=== PATIENT | male | born 1950 | race Asian ===

== ENCOUNTER 2018-09-12 15:14 | Inpatient (IN) | payer MEDICARE, MEDICAID ==
[~2018-09-12] VITALS: Ht 177.8 cm; Wt 59.4 kg
[2018-09-12] MEDS ORDERED: LEVOTHYROXINE75 MCG GT (15:20)
[2018-09-12] MEDS ORDERED: LOVENOX10 M1 SUBQ (15:20)
[2018-09-12] MEDS ORDERED: REGLAN10 M1 GT (15:20)
[2018-09-12] MEDS ORDERED: PANTOPRAZOLE SO40 MG GT (15:20)
[2018-09-12] MEDS ORDERED: ZINC SULFATE220 M2 GT (15:20)
[2018-09-12] MEDS ORDERED: METRONIDAZOLE500 MG GT (15:20)
[2018-09-12] MEDS ORDERED: GABAPENTIN400 MG GT (15:20)
[2018-09-12] MEDS ORDERED: ATORVASTATIN CA40 MG GT (15:20)
[2018-09-12] MEDS ORDERED: NORCO 5-325 TA1 EACH ORAL (15:20)
[2018-09-12] MEDS ORDERED: ASPIR 8181 MG GT (15:20)
[2018-09-12] MEDS ORDERED: [UNRECOGNIZED DRUG - OTHER] MC (15:20)
[2018-09-12] MEDS ORDERED: PERI-COLACE1 EA GT (15:20)
[2018-09-12] MEDS ORDERED: MILK OF MA2400 MG/10 ORAL (15:20)
--- NOTE | 2018-09-12 15:25 | Emergency Room Report ---
History of Present Illness General Chief Complaint: Malfunctioning Gastric Tube Source: Medical Record, EMS Present Illness HPI Patient is a 68-year-old male brought in by ambulance after G-tube was accidentally removed. Patient was noted to be chronically ventilator dependent.Patient was noted to have onset of symptoms earlier today.Patient had not been vomiting. Allergies: Coded Allergies: VANCOMYCIN (Verified Allergy, Unknown, 09/12/18) Patient History Past Medical History: see triage record Reviewed Nursing Documentation: PMH: Agreed; PSxH: Agreed Nursing Documentation-PMH Past Medical History: No History, Except For Hx Cardiac Problems: No - HYPOTHYROIDISM, HYPERLIPIDEMIA, DYSPHAGIA Hx Gastrointestinal Problems: Yes - GERD Review of Systems All Other Systems: limited - by nonverbal patient Physical Exam Vital Signs Date Time Temp Pulse Resp B/P (MAP) Pulse Ox O2 Delivery O2 Flow Rate FiO2 09/12/18 15:09 99.3 88 21 106/67 99 Mechanical Ventilator 5.0 General Appearance: Chronically Ill Head: normocephalic, atraumatic ENT: dry mucus membranes Neck: limited range of motion, tracheotomy Respiratory: no respiratory distress, speaking full sentences Cardiovascular #1: normal inspection, regular rate, rhythm Gastrointestinal: normal inspection, soft, other - gtube stoma patent Musculoskeletal: decreased range of mation Neurologic: alert, responsive, motor weakness, other - nonverbal Psychiatric: depressed affect Skin: no rash Medical Decision Making Diagnostic Impression: Primary Impression: PEG (percutaneous endoscopic gastrostomy) adjustment/replacement/removal Additional Impressions: Severe anemia Feeding by G-tube ER Course Patient presented for G-tube replacement. Gastrostomy tube was replaced with sterile technique. A 14 Cypriot gastric tube was placed into the stoma. This was subsequently removed and a 16 Cypriot gastric tube was placed at 3-1/2 cm was inflated with sterile water to 20 cc. Post procedure x-ray showed adequate G-tube placement. Patient tolerated well without complications.Patient was subsequently noted to be hypotensive. There is no blood from the G-tube. Patient was started on IV fluids. Laboratory testing showed evidence of anemia. Patient was daughter Sarah blood transfusion due to patient's significant anemia. Dr. Peck was contacted for inpatient management due to primary care physician Labs Test 09/12/18 17:30 09/12/18 17:40 09/12/18 18:00 White Blood Count 8.8 K/UL (4.8-10.8) Red Blood Count 2.16 M/UL (4.70-6.10) Hemoglobin 6.3 G/DL (14.2-18.0) Hematocrit 19.3 % (42.0-52.0) Mean Corpuscular Volume 89 FL (80-99) Mean Corpuscular Hemoglobin 29.1 PG (27.0-31.0) Mean Corpuscular Hemoglobin Concent 32.5 G/DL (32.0-36.0) Red Cell Distribution Width 13.5 % (11.6-14.8) Platelet Count 227 K/UL (150-450) Mean Platelet Volume 5.7 FL (6.5-10.1) Neutrophils (%) (Auto) % (45.0-75.0) Lymphocytes (%) (Auto) % (20.0-45.0) Monocytes (%) (Auto) % (1.0-10.0) Eosinophils (%) (Auto) % (0.0-3.0) Basophils (%) (Auto) % (0.0-2.0) Differential Total Cells Counted 100 Neutrophils % (Manual) 64 % (45-75) Lymphocytes % (Manual) 22 % (20-45) Monocytes % (Manual) 4 % (1-10) Eosinophils % (Manual) 0 % (0-3) Basophils % (Manual) 0 % (0-2) Band Neutrophils 10 % (0-8) Platelet Estimate Adequate Platelet Morphology Normal Hypochromasia 1+ Anisocytosis 1+ Sodium Level 132 MMOL/L (136-145) Potassium Level 4.0 MMOL/L (3.5-5.1) Chloride Level 97 MMOL/L (98-107) Carbon Dioxide Level 28 MMOL/L (21-32) Anion Gap 7 mmol/L (5-15) Blood Urea Nitrogen 19 mg/dL (7-18) Creatinine 1.0 MG/DL (0.55-1.30) Estimat Glomerular Filtration Rate > 60 mL/min (>60) Glucose Level 82 MG/DL (74-106) Lactic Acid Level 1.00 mmol/L (0.4-2.0) Calcium Level 8.8 MG/DL (8.5-10.1) Total Bilirubin 0.2 MG/DL (0.2-1.0) Aspartate Amino Transf (AST/SGOT) 32 U/L (15-37) Alanine Aminotransferase (ALT/SGPT) 17 U/L (12-78) Alkaline Phosphatase 85 U/L (46-116) Total Creatine Kinase 95 U/L (26-308) Creatine Kinase MB 1.8 NG/ML (0.0-3.6) Creatine Kinase MB Relative Index 1.8 Troponin I 0.000 ng/mL (0.000-0.056) Total Protein 7.1 G/DL (6.4-8.2) Albumin 2.0 G/DL (3.4-5.0) Globulin 5.1 g/dL Albumin/Globulin Ratio 0.4 (1.0-2.7) Lipase 51 U/L (73-393) Arterial Blood pH 7.454 (7.350-7.450) Arterial Blood Partial Pressure CO2 43.4 mmHg (35.0-45.0) Arterial Blood Partial Pressure O2 119.8 mmHg (75.0-100.0) Arterial Blood HCO3 29.8 mmol/L (22.0-26.0) Arterial Blood Oxygen Saturation 98.2 % (95-100) Arterial Blood Base Excess 5.3 (-2-2) Aakash Test Positive Urine Color Pale yellow Urine Appearance Clear Urine pH 7 (4.5-8.0) Urine Specific [place] 1.005 (1.005-1.035) Urine Protein 2+ (NEGATIVE) Urine Glucose (UA) Negative (NEGATIVE) Urine Ketones Negative (NEGATIVE) Urine Blood 2+ (NEGATIVE) Urine Nitrite Negative (NEGATIVE) Urine Bilirubin Negative (NEGATIVE) Urine Urobilinogen Normal MG/DL (0.0-1.0) Urine Leukocyte Esterase 1+ (NEGATIVE) Urine RBC 5-10 /HPF (0 - 0) Urine WBC 2-4 /HPF (0 - 0) Urine Squamous Epithelial Cells None /LPF (NONE/OCC) Urine Bacteria Few /HPF (NONE) Last Vital Signs Date Time Temp Pulse Resp B/P (MAP) Pulse Ox O2 Delivery O2 Flow Rate FiO2 09/12/18 15:09 99.3 88 21 106/67 99 Mechanical Ventilator 5.0 Status: unchanged Disposition: ADMITTED INPATIENT Condition: Serious Lonnie Galvez MD Sep 12, 2018 15:25
[2018-09-12 16:04] VITALS: BP 103/61
--- NOTE | 2018-09-12 16:19 | NUR ---
ED Nurse Note:pt. came for GT replacement, was replaced with FR 16, X-ray to conferm was done, pt. 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
--- NOTE | 2018-09-12 17:03 | Diagnostic Imaging Report ---
Indication: Post gastrostomy replacement Technique: Supine view of the abdomen after injection of water-soluble contrast into gastrostomy Comparison: none Findings: Contrast opacifies the stomach. No contrast extravasation is demonstrated. The bowel gas pattern is unremarkable. Incidental note is made of interstitial disease at both lung bases Impression: Satisfactory position of gastrostomy tube
--- NOTE | 2018-09-12 17:35 | NUR ---
ED Nurse Note: PT transport cancelled due to change in pt condition
[2018-09-12 17:50] VITALS: BP 92/62
--- NOTE | 2018-09-12 17:50 | NUR ---
ED Nurse Note:blood and cultures were sent to labs
--- NOTE | 2018-09-12 18:04 | NUR ---
ED Nurse Note:urine sent to labs
[2018-09-12 18:06] LABS: HEMATOCRIT 19.3 % (42.0-52.0); MEAN CORPUSCULAR VOLUME 89 FL (80-99); PLATELET COUNT 227 K/UL (150-450); RED BLOOD COUNT 2.16 M/UL (4.70-6.10); RED CELL DISTRIBUTION WIDTH 13.5 % (11.6-14.8); WHITE BLOOD COUNT 8.8 K/UL (4.8-10.8)
[2018-09-12 18:10] LABS: APPEARANCE,URINE CLEAR; BILIRUBIN, URINE NEGATIVE (NEGATIVE); COLOR,URINE PALE YELLOW; GLUCOSE, URINE (UA) NEGATIVE (NEGATIVE); KETONES,URINE NEGATIVE (NEGATIVE); LEUKOCYTE ESTERASE ,URINE 1+ (NEGATIVE); NITRITE,URINE NEGATIVE (NEGATIVE); PH,URINE 7 (4.5-8.0); PROTEIN,URINE 2+ (NEGATIVE); UROBILINOGEN,URINE NORMAL MG/DL (0.0-1.0)
[2018-09-12 18:24] LABS: HEMOGLOBIN 6.3 G/DL (14.2-18.0)
[2018-09-12 18:34] LABS: ANION GAP 7 mmol/L (5-15); BLOOD UREA NITROGEN 19 mg/dL (7-18); CALCIUM 8.8 MG/DL (8.5-10.1); CARBON DIOXIDE 28 MMOL/L (21-32); CHLORIDE 97 MMOL/L (98-107); SODIUM 132 MMOL/L (136-145)
[2018-09-12 18:55] LABS: ALANINE AMINOTRANSFERASE 17 U/L (12-78); ALBUMIN/GLOBULIN RATIO 0.4 (1.0-2.7); ALKALINE PHOSPHATASE 85 U/L (46-116); ASPARTATE AMINO TRANSFERASE 32 U/L (15-37); BILIRUBIN,TOTAL 0.2 MG/DL (0.2-1.0); CKMB 1.8 NG/ML (0.0-3.6); CREATINE KINASE 95 U/L (26-308)
--- NOTE | 2018-09-12 19:18 | NUR ---
ED Nurse Note:pt. has perianal and sacral redness photo was taken
--- NOTE | 2018-09-12 19:18 | NUR ---
ED Nurse Note:called SDU with report- they can't take report till 19:30
--- NOTE | 2018-09-12 20:00 | NUR ---
ED Nurse Note: Report given to JOSE DANIEL Gan. VSS. 1 bag of PRBC's hanging. Pt tolerating well. Showing no signs of acute distress.
[2018-09-12] MEDS ORDERED: OXYCODONE HCL10 MG GT (20:16)
[2018-09-12] MEDS ORDERED: ACETAMINOPHEN325 M1 GT (20:16)
[2018-09-12] MEDS ORDERED: VITAMIN D1000 UNI1 GT (20:16)
[2018-09-12] MEDS ORDERED: DOCUSATE SODIU100 MG GT (20:16)
[2018-09-12] MEDS ORDERED: OXYCODONE HCL10 MG ORAL (20:16)
[2018-09-12] MEDS ORDERED: METHOCARBAMOL500 MG GT (20:16)
[2018-09-12] MEDS ORDERED: DULCOLAX10 MG RC (20:16)
[2018-09-12] MEDS ORDERED: ACIDOPHILUS1 EAC4 GT (20:16)
[2018-09-12] MEDS ORDERED: ASCORBIC ACID500 MG GT (20:16)
[2018-09-12] MEDS ORDERED: LIDOCAINE700 M1 TP (20:16)
[2018-09-12] MEDS ORDERED: ROXICODONE5 MG GT (20:16)
[2018-09-12] MEDS ORDERED: FERROUS SU220 MG/53 GT (20:16)
[2018-09-12] MEDS ORDERED: FLEET ENEMA133 ML RECTAL (20:16)
[2018-09-12] MEDS ORDERED: MIRALAX17 G2 GT (20:16)
[2018-09-12] MEDS ORDERED: MULTIVITAMINS1 EA13 GT (20:16)
--- NOTE | 2018-09-12 20:30 | NUR ---
ED Nurse Note: Awaiting clean room in SDU.
[2018-09-12] MEDS ORDERED: Albuterol/Ipratropium 3ml neb HHN PRN (21:15)
[2018-09-12] MEDS ORDERED: Morphine Sulfate 4mg/ml Inj (IV USE ONLY) IVP PRN (21:15)
[2018-09-12] MEDS ORDERED: LORazepam Inj 2mg/ml 1ml IV PRN (21:15)
[2018-09-12] MEDS ORDERED: Miralax 17gm pkt ORAL PRN (21:15)
[2018-09-12 21:30] VITALS: BP 123/73
--- NOTE | 2018-09-12 21:30 | NUR ---
ED Nurse Note: Pt taken to SDU. RN, refractory technician and RT accompanied with patient. All belongings were taken with patient. Pt connected to ambu bag, IV located on RW20g with PRBC's running. Tolerating well. VSS with sbp of 113, HR 83, O2: 100%.
--- NOTE | 2018-09-12 21:30 | NUR ---
NURSE NOTES: Received report from Liliam Mason RN. Patient is awake in bed, non-verbal, A/O x3. Sinus rhythm on cardiac rehabilitation program director. No s/s of acute distress at this time. Saturating well on trach-vent settings: Shiley 6, AC 12, vT 500, FiO2 40%, PEEP 5. Condom catheter applied. Right wrist 20g IV, intact and patent running 1 unit pRBCs. Bed locked in lowest position with side rails up x3. Call light left within reach. Will continue to monitor.
[2018-09-13] VITALS: BP 114/67
[2018-09-13 04:00] VITALS: BP 120/69
--- NOTE | 2018-09-13 07:00 | NUR ---
Received Patient on Vent ACVC RR 12, VT 500, Fio2 40%, PEEP +5. Patient is trached with a cuffed Shiley 6 tracheostomy tube, secured with tracheostomy ties. Bilateral rhonchi heard upon auscultation. Suction thick white secretions via tracheostomy as needed. Patient alert and awake, lying comfortable in bed. Vent plugged into red outlet. Alarms on and audible. Will continue to monitor the patient throughout the day.
--- NOTE | 2018-09-13 07:20 | NUR ---
HAND-OFF: Report given to Elena Nova RN.
--- NOTE | 2018-09-13 07:21 | NUR ---
NURSE NOTES: Received patient from Elvia Ricketts RN. Patient in bed and awake. Trach to vent dependent. electronic device monitor in placed. tolerating Gtube feeding. condom cath in placed and draining. Bed in lowest position with side rails up. Will continue to follow plan of care.
[2018-09-13 08:00] VITALS: BP 136/83
[2018-09-13 08:16] LABS: HEMATOCRIT 28.9 % (42.0-52.0); HEMOGLOBIN 9.6 G/DL (14.2-18.0); MEAN CORPUSCULAR VOLUME 88 FL (80-99); PLATELET COUNT 218 K/UL (150-450); RED BLOOD COUNT 3.27 M/UL (4.70-6.10); RED CELL DISTRIBUTION WIDTH 13.5 % (11.6-14.8); WHITE BLOOD COUNT 6.1 K/UL (4.8-10.8)
[2018-09-13 08:36] LABS: INR 1.1 (0.9-1.1)
[2018-09-13 08:52] LABS: ALBUMIN 1.9 G/DL (3.4-5.0); ANION GAP 6 mmol/L (5-15); BLOOD UREA NITROGEN 15 mg/dL (7-18); CALCIUM 8.5 MG/DL (8.5-10.1); CARBON DIOXIDE 28 MMOL/L (21-32); CHLORIDE 100 MMOL/L (98-107); CREATININE 0.8 MG/DL (0.55-1.30); FERRITIN 1416 NG/ML (8-388); LACTATE DEHYDROGENASE 131 U/L (81-234); PHOSPHORUS 1.8 MG/DL (2.5-4.9); POTASSIUM 3.7 MMOL/L (3.5-5.1); SODIUM 133 MMOL/L (136-145)
[2018-09-13] MEDS: Pantoprazole Inj IV SCH (09:05)
[2018-09-13] MEDS: Heparin 5000 units/ml inj SUBQ SCH ×2 (09:07→21:07)
[2018-09-13 09:19] LABS: % IRON SATURATION 31 % (15-50); IRON 23 ug/dL (50-175); TOTAL IRON BINDING CAPACITY 75 ug/dL (250-450)
--- NOTE | 2018-09-13 09:38 | NUR ---
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
--- NOTE | 2018-09-13 10:03 | Diagnostic Imaging Report ---
Indication: Shortness of breath Technique: One view of the chest Comparison: none Findings: Prominent interstitial markings are seen in the right lung. No focal airspace consolidation. No effusions. Normal heart size. Tracheostomy is demonstrated. Impression: Acuity indeterminate prominent bilateral interstitial markings. Tracheostomy
--- NOTE | 2018-09-13 10:45 | History and Physical Report ---
DATE OF ADMISSION: 09/12/2018 REASON FOR ADMISSION: This is the first admission to [facility] of this 68-year-old patient because of malfunction of G-tube and drop in H and H. HISTORY OF PRESENT ILLNESS: The patient is a resident of an extended care facility subacute unit where he has been in relatively stable condition for the last week. More than a week ago, he was admitted to [facility] for sepsis. He was found to have a fracture of his left hip. It was nondisplaced and discharged back to the facility several days after his admission. His gastrostomy tube became nonfunctional, and he was transferred to [facility]. During assessment in the emergency room, he was found to have a hemoglobin of 6.3 and hematocrit of 19.3, and the patient was admitted. PAST MEDICAL HISTORY: He developed acute respiratory failure associated with CVA. He had to be intubated and placed on mechanical ventilation. He was unable to be weaned and underwent tracheostomy and gastrostomy and referred to the subacute unit. Medically, he is known to have hypothyroidism and chronic pain syndrome. ALLERGIES: There are no allergies. MEDICATIONS: The patient is on gabapentin 400 mg t.i.d. and levothyroxine 75 mcg daily. He was on heparin 5000 units subcutaneously q.12 h., pantoprazole 40 mg daily, albuterol sulfate and ipratropium bromide inhalation therapy every four hours, and lorazepam p.r.n. for anxiety. FAMILY HISTORY: Not known. SOCIAL HISTORY: He is single. He was born [place] for many years prior to . HABITS: The patient has a long history of smoking, but denies drinking or use of illicit drugs. REVIEW OF SYSTEMS: The patient is unable to give any information regarding his state of health. PHYSICAL EXAMINATION: VITAL SIGNS: His blood pressure is 113/67, his pulse is 81, respirations of 16, and temperature 98.6. HEENT: Eyes were normal. Pupils were round, equal, and reactive to light. Sclerae were white. Conjunctivae were pale. Extraocular movements were normal. Temporal arteries were palpable bilaterally. There was bilateral temporal wasting. Visual henao to confrontation 04:39 could not be assessed because of lack of the patient's comprehension. ENT, mucous membranes are not dehydrated. Auditory canals were clear and tympanic membranes could not be visualized. Nasal cavity was not congested. Nasal septum was intact. Soft palate was free of ulcerations. Pharynx was clear from exudate or tonsillar hypertrophy. Uvula kyleigh to phonation. Tongue was moist, midline, and normally papillated. NECK: Supple. There was no goiter. No mass. No lymphadenopathy. There was no JVD. No bruits. Carotid upstroke was 2+. LUNGS: Clear. HEART: PMI was in the fourth left intercostal space in midclavicular line. There was normal S1 and normal S2. There was no murmur. No arrhythmia. No S3. No S4. No pericardial rub. ABDOMEN: Soft, flat, and nontender without organomegaly. There was normal bowel sounds without bruits. There was no guarding. No rebound tenderness. No ascites. No hernia. No CVA tenderness. Liver span was 8 cm, smooth, and nontender. EXTREMITIES: There was no cyanosis, no clubbing, and no edema. Extremities were warm. NEUROLOGICAL: Reflexes in biceps, triceps, and brachioradialis were present. Patellar retinaculum was difficult to obtain. Plantars were indifferent. Cranial nerves II through XII were symmetric and equal. Cerebellar function, there was no tremor. No nystagmus. No extrapyramidal rigidity. Sensory exam to pinprick, cotton touch, and position are grossly normal. Motor strength could not be assessed because the patient declined the tests. LABORATORY DATA: Hemoglobin is 6.3, hematocrit 19.3 with MCV of 89, WBC of 8.8, and platelets 227. His BUN and creatinine are 19 and 1.0 respectively. His sodium is 132, potassium 4.0, chloride 97, and CO2 is 28. His troponin was not detected. His albumin is 2.0 and total protein 7.1. His lipase was 51. His lactic acid was . His KUB showed gastrostomy replacement and satisfactory position of gastrostomy tube. IMPRESSION: The patient has drop in H and H and he is admitted . We will type and cross and transfuse 2 units of packed RBC. Stool for occult blood x3 will be taken. total iron-binding capacity and ferritin will be ordered. Repeat laboratory tests will be done in the a.m. Shy Peck M.D. DR: CHIO/YK JOB#: [id number] CC:
--- NOTE | 2018-09-13 11:33 | Consultation ---
History of Present Illness General Chief Complaint: Malfunctioning Gastric Tube Present Illness HPI 68 year old male with hx of CVA, chronic tracheostomy and PEG feeding tube, hypothyroid, recent hip fracture, was brought in because his feeding tube came off. In ER he was found to be severely anemic. He also had right pleural effusion +/- infiltrate. Pt is awake and looks comfortable. Doesn't follow simple commands but keep starring and tracking. Allergies: Coded Allergies: VANCOMYCIN (Verified Allergy, Unknown, 09/12/18) Medication History Scheduled Ascorbic Acid* (Ascorbic Acid*), 500 MG GT DAILY, (Reported) Aspirin* (Aspir 81*), 81 MG GT DAILY, (Reported) Atorvastatin Calcium* (Atorvastatin Calcium*), 80 MG GT BEDTIME, (Reported) Bisacodyl (Dulcolax), 10 MG RC DAILY, (Reported) Cholecalciferol (Vitamin D3)* (Vitamin D*), 5,000 UNIT GT DAILY, (Reported) Docusate Sodium* (Docusate Sodium*), 100 MG GT Q12HR, (Reported) Enoxaparin* (Lovenox*), 60 MG SUBQ EVERY 12 HOURS, (Reported) Gabapentin* (Gabapentin*), 400 MG GT THREE TIMES A DAY, (Reported) Levothyroxine Sodium* (Levothyroxine Sodium*), 75 MCG GT DAILY, (Reported) Lidocaine (Lidocaine), 5 % TP Q12HR, (Reported) Magnesium Hydroxide* (Milk Of Magnesia*), 30 ML ORAL DAILY, (Reported) Metoclopramide Hcl* (Reglan*), 10 MG GT THREE TIMES A DAY, (Reported) Metronidazole* (Flagyl*), 500 MG GT EVERY 8 HOURS, (Reported) Multivitamin with Minerals (Multivitamins with Minerals), 1 TAB GT DAILY, ( Reported) Pantoprazole* (Pantoprazole*), 40 MG GT DAILY, (Reported) Polyethylene Glycol 3350* (Miralax*), 17 GM GT DAILY, (Reported) Zinc Sulfate (Zinc Sulfate), 220 MG GT DAILY, (Reported) Scheduled PRN Acetaminophen* (Acetaminophen 325MG Tablet*), 650 MG GT Q4H PRN for Mild Pain/ Temp > 100.5, (Reported) Hydrocodone Bit/Acetaminophen 5-325* ([place] 5-325*), 1 TAB ORAL Q4H PRN for For Pain, (Reported) Methocarbamol* (Methocarbamol*), 500 MG GT Q8HR PRN for For Pain, (Reported) Na Phos,M-B/Na Phos,Di-Ba* (Fleet Enema*), 118 ML RECTAL for BOWEL MANAGEMENT, ( Reported) Oxycodone HCl (Oxycodone HCl), 5 MG GT Q6HR PRN for Moderate Pain (Pain Scale 4- 6), (Reported) Oxycodone Hcl* (Oxycodone Hcl*), 10 MG ORAL Q6HR PRN for Severe Pain (Pain Scale 7-10), (Reported) Oxycodone Hcl* (Oxycodone Hcl*), 10 MG GT Q6HR PRN for Severe Pain (Pain Scale 7 -10), (Reported) Miscellaneous Medications Ferrous Sulfate (Ferrous Sulfate), 330 MG GT, (Reported) Lactobacillus Acidophilus (Acidophilus), 4 EACH GT, (Reported) Discontinued Medications Carboxymethylcellulose (Methocel E 4 M), 500 MG MC, (Reported) Discontinued Reason: Therapy completed Docusate Sod/Senna (Docusate Sodium-Senna Tablet), 1 CAP GT TWICE A DAY, ( Reported) Discontinued Reason: Therapy completed Patient History Healthcare decision maker N Resuscitation status Do Not Resuscitate Advanced Directive on File Past Medical/Surgical History Past Medical/Surgical History: (1) Hypothyroidism (2) Hip fracture (3) Feeding by G-tube (4) Chronic respiratory failure (5) History of CVA (cerebrovascular accident) Review of Systems All Other Systems: negative except mentioned in HPI Physical Exam General Appearance: cachetic Lines, tubes and drains: peripheral HEENT: normocephalic, atraumatic Neck: non-tender, normal alignment Respiratory/Chest: chest wall non-tender, normal breath sounds Cardiovascular/Chest: normal peripheral pulses, normal rate Abdomen: normal bowel sounds Genitourinary/Rectal: normal genital exam Extremities: non-tender Last 24 Hour Vital Signs Date Time Temp Pulse Resp B/P (MAP) Pulse Ox O2 Delivery O2 Flow Rate FiO2 09/13/18 10:47 86 27 40 09/13/18 08:47 84 24 40 09/13/18 08:00 Mechanical Ventilator 09/13/18 08:00 40 09/13/18 08:00 99.2 79 22 136/83 (100) 100 09/13/18 07:39 82 09/13/18 07:29 84 20 40 09/13/18 05:30 85 28 40 09/13/18 04:00 40 09/13/18 04:00 98.6 84 24 120/69 (86) 100 09/13/18 04:00 Mechanical Ventilator 09/13/18 03:32 81 09/13/18 00:54 73 19 40 09/13/18 00:00 Mechanical Ventilator 09/13/18 00:00 98.2 75 13 114/67 (83) 100 09/13/18 00:00 40 09/12/18 23:24 76 09/12/18 23:03 76 15 40 09/12/18 22:50 79 29 35 09/12/18 21:50 98.6 81 16 113/67 100 Mechanical Ventilator 09/12/18 21:30 40 09/12/18 21:30 Mechanical Ventilator 09/12/18 21:30 98.2 79 19 123/73 (90) 98 09/12/18 21:09 80 17 40 09/12/18 19:50 82 19 40 09/12/18 19:44 82 19 Mechanical Ventilator 40 09/12/18 17:50 99.9 83 21 92/62 99 Mechanical Ventilator 5.0 09/12/18 17:30 85 18 40 09/12/18 16:04 99.3 86 21 103/61 99 Mechanical Ventilator 5.0 09/12/18 15:15 99 21 40 09/12/18 15:09 99.3 88 21 106/67 99 Mechanical Ventilator 5.0 Intake and Output 09/12/18 09/13/18 19:00 07:00 Intake Total 60 ml 370 ml Output Total 150 ml Balance 60 ml 220 ml Intake Free Water 60 ml 100 ml Tube Feeding 270 ml Output Urine Total 150 ml # Bowel Movements 4 Laboratory Tests Test 09/12/18 17:30 09/12/18 17:40 09/12/18 18:00 09/13/18 03:00 White Blood Count 8.8 K/UL (4.8-10.8) Red Blood Count 2.16 M/UL (4.70-6.10) L Hemoglobin 6.3 G/DL (14.2-18.0) *L Hematocrit 19.3 % (42.0-52.0) L Mean Corpuscular Volume 89 FL (80-99) Mean Corpuscular Hemoglobin 29.1 PG (27.0-31.0) Mean Corpuscular Hemoglobin Concent 32.5 G/DL (32.0-36.0) Red Cell Distribution Width 13.5 % (11.6-14.8) Platelet Count 227 K/UL (150-450) Mean Platelet Volume 5.7 FL (6.5-10.1) L Neutrophils (%) (Auto) % (45.0-75.0) Lymphocytes (%) (Auto) % (20.0-45.0) Monocytes (%) (Auto) % (1.0-10.0) Eosinophils (%) (Auto) % (0.0-3.0) Basophils (%) (Auto) % (0.0-2.0) Differential Total Cells Counted 100 Neutrophils % (Manual) 64 % (45-75) Lymphocytes % (Manual) 22 % (20-45) Monocytes % (Manual) 4 % (1-10) Eosinophils % (Manual) 0 % (0-3) Basophils % (Manual) 0 % (0-2) Band Neutrophils 10 % (0-8) H Platelet Estimate Adequate Platelet Morphology Normal Hypochromasia 1+ Anisocytosis 1+ Sodium Level 132 MMOL/L (136-145) L Potassium Level 4.0 MMOL/L (3.5-5.1) Chloride Level 97 MMOL/L (98-107) L Carbon Dioxide Level 28 MMOL/L (21-32) Anion Gap 7 mmol/L (5-15) Blood Urea Nitrogen 19 mg/dL (7-18) H Creatinine 1.0 MG/DL (0.55-1.30) Estimat Glomerular Filtration Rate > 60 mL/min (>60) Glucose Level 82 MG/DL (74-106) Lactic Acid Level 1.00 mmol/L (0.4-2.0) Calcium Level 8.8 MG/DL (8.5-10.1) Total Bilirubin 0.2 MG/DL (0.2-1.0) Aspartate Amino Transf (AST/SGOT) 32 U/L (15-37) Alanine Aminotransferase (ALT/SGPT) 17 U/L (12-78) Alkaline Phosphatase 85 U/L (46-116) Total Creatine Kinase 95 U/L (26-308) Creatine Kinase MB 1.8 NG/ML (0.0-3.6) Creatine Kinase MB Relative Index 1.8 Troponin I 0.000 ng/mL (0.000-0.056) Total Protein 7.1 G/DL (6.4-8.2) Albumin 2.0 G/DL (3.4-5.0) L Globulin 5.1 g/dL Albumin/Globulin Ratio 0.4 (1.0-2.7) L Lipase 51 U/L (73-393) L Arterial Blood pH 7.454 (7.350-7.450) Arterial Blood Partial Pressure CO2 43.4 mmHg (35.0-45.0) Arterial Blood Partial Pressure O2 119.8 mmHg (75.0-100.0) H Arterial Blood HCO3 29.8 mmol/L (22.0-26.0) H Arterial Blood Oxygen Saturation 98.2 % (95-100) Arterial Blood Base Excess 5.3 (-2-2) H Aakash Test Positive Urine Color Pale yellow Urine Appearance Clear Urine pH 7 (4.5-8.0) Urine Specific [place] 1.005 (1.005-1.035) Urine Protein 2+ (NEGATIVE) H Urine Glucose (UA) Negative (NEGATIVE) Urine Ketones Negative (NEGATIVE) Urine Blood 2+ (NEGATIVE) H Urine Nitrite Negative (NEGATIVE) Urine Bilirubin Negative (NEGATIVE) Urine Urobilinogen Normal MG/DL (0.0-1.0) Urine Leukocyte Esterase 1+ (NEGATIVE) H Urine RBC 5-10 /HPF (0 - 0) H Urine WBC 2-4 /HPF (0 - 0) Urine Squamous Epithelial Cells None /LPF (NONE/OCC) Urine Bacteria Few /HPF (NONE) Stool Occult Blood Negative (NEGATIVE) Test 09/13/18 07:55 White Blood Count 6.1 K/UL (4.8-10.8) Red Blood Count 3.27 M/UL (4.70-6.10) L Hemoglobin 9.6 G/DL (14.2-18.0) #L Hematocrit 28.9 % (42.0-52.0) #L Mean Corpuscular Volume 88 FL (80-99) Mean Corpuscular Hemoglobin 29.5 PG (27.0-31.0) Mean Corpuscular Hemoglobin Concent 33.4 G/DL (32.0-36.0) Red Cell Distribution Width 13.5 % (11.6-14.8) Platelet Count 218 K/UL (150-450) Mean Platelet Volume 5.3 FL (6.5-10.1) L Neutrophils (%) (Auto) % (45.0-75.0) Lymphocytes (%) (Auto) % (20.0-45.0) Monocytes (%) (Auto) % (1.0-10.0) Eosinophils (%) (Auto) % (0.0-3.0) Basophils (%) (Auto) % (0.0-2.0) Differential Total Cells Counted 100 Neutrophils % (Manual) 82 % (45-75) H Lymphocytes % (Manual) 10 % (20-45) L Monocytes % (Manual) 7 % (1-10) Eosinophils % (Manual) 1 % (0-3) Basophils % (Manual) 0 % (0-2) Band Neutrophils 0 % (0-8) Platelet Estimate Adequate Platelet Morphology Normal Red Blood Cell Morphology Normal Erythrocyte Sedimentation Rate 120 MM/HR (0-20) H Reticulocyte Count 0.6 % (0.0-2.0) Prothrombin Time 11.4 SEC (9.30-11.50) Prothromb Time International Ratio 1.1 (0.9-1.1) Activated Partial Thromboplast Time 37 SEC (23-33) H Sodium Level 133 MMOL/L (136-145) L Potassium Level 3.7 MMOL/L (3.5-5.1) Chloride Level 100 MMOL/L (98-107) Carbon Dioxide Level 28 MMOL/L (21-32) Anion Gap 6 mmol/L (5-15) Blood Urea Nitrogen 15 mg/dL (7-18) Creatinine 0.8 MG/DL (0.55-1.30) Estimat Glomerular Filtration Rate > 60 mL/min (>60) Glucose Level 104 MG/DL (74-106) Calcium Level 8.5 MG/DL (8.5-10.1) Phosphorus Level 1.8 MG/DL (2.5-4.9) L Iron Level 23 ug/dL (50-175) L Total Iron Binding Capacity 75 ug/dL (250-450) L Percent Iron Saturation 31 % (15-50) Unsaturated Iron Binding 52 ug/dL (112-346) L Ferritin 1416 NG/ML (8-388) H Lactate Dehydrogenase 131 U/L (81-234) Albumin 1.9 G/DL (3.4-5.0) L Carcinoembryonic Antigen Pending Vitamin B12 Level 1217 PG/ML (193-986) H Folate 13.6 NG/ML (8.6-58.9) Height (Feet): 5 Height (Inches): 10.00 Weight (Pounds): 131 Medications Current Medications Medications (Trade) Dose Ordered Sig/Radha Route PRN Reason Start Time Stop Time Status Last Admin Dose Admin Acetaminophen (Tylenol) 650 mg Q4H PRN ORAL FEVER 09/12/18 21:15 10/12/18 21:14 Albuterol/ Ipratropium (Albuterol/ Ipratropium) 3 ml Q4H PRN HHN Shortness of Breath 09/12/18 21:15 09/17/18 21:14 Dextrose (Dextrose 50%) 25 ml Q30M PRN IV Hypoglycemia 09/12/18 21:15 10/12/18 21:14 Dextrose (Dextrose 50%) 50 ml Q30M PRN IV Hypoglycemia 09/12/18 21:30 10/12/18 21:29 Gabapentin (Neurontin) 400 mg THREE TIMES A DAY GT 09/13/18 09:00 10/13/18 08:59 09/13/18 09:05 Heparin Sodium (Porcine) (Heparin 5000 units/ml) 5,000 units EVERY 12 HOURS SUBQ 09/13/18 09:00 10/13/18 08:59 09/13/18 09:07 Levothyroxine Sodium (Synthroid) 75 mcg DAILY GT 09/13/18 09:00 10/13/18 08:59 09/13/18 09:05 Lorazepam (Ativan 2mg/ml 1ml) 2 mg Q2H PRN IV For Anxiety 09/12/18 21:15 09/19/18 21:14 Morphine Sulfate (Morphine Sulfate) 4 mg Q4H PRN IVP Severe Pain (Pain Scale 7-10) 09/12/18 21:15 09/19/18 21:14 Ondansetron HCl (Zofran) 4 mg Q6H PRN IVP Nausea & Vomiting 09/12/18 21:15 10/12/18 21:14 Pantoprazole (Protonix) 40 mg DAILY IV 09/13/18 09:00 10/13/18 08:59 09/13/18 09:05 Polyethylene Glycol (Miralax) 17 gm DAILYPRN PRN ORAL Constipation 09/12/18 21:15 10/12/18 21:14 Assessment/Plan Problem List: (1) Hypotension ICD Codes: I95.9 - Hypotension, unspecified SNOMED: 42137021 (2) Chronic respiratory failure ICD Codes: J96.10 - Chronic respiratory failure, unspecified whether with hypoxia or hypercapnia SNOMED: 55680992 (3) Severe anemia ICD Codes: D64.9 - Anemia, unspecified SNOMED: 756087961 (4) History of CVA (cerebrovascular accident) ICD Codes: Z86.73 - Personal history of transient ischemic attack (TIA), and cerebral infarction without residual deficits SNOMED: 196205641 (5) Hypothyroidism ICD Codes: E03.9 - Hypothyroidism, unspecified SNOMED: 36756132 (6) Hip fracture ICD Codes: S72.009A - Fracture of unspecified part of neck of unspecified femur , initial encounter for closed fracture SNOMED: 687558067 (7) Feeding by G-tube ICD Codes: Z93.1 - Gastrostomy status SNOMED: 567462960, 409815228, 457588290 (8) Protein-calorie malnutrition, severe ICD Codes: E43 - Unspecified severe protein-calorie malnutrition SNOMED: 435569574, 279103190, 800635803 Respiratory: monitor respiratory rate, adjust FIO2, CXR Cardiac: continue to monitor HR/BP Renal: F/U I&O, keep IV fluid, check electrolytes Infectious Disease: check cultures Gastrointestinal: continue feedings/current rate Endocrine: monitor blood sugar Hematologic: monitor H/H, transfuse if hgb<8.5 Neurologic: keep patient comfortable Affect: PRN ativan Prophylaxis: Heparin Disposition: keep in ICU Notes Reviewed: international relations teacher, cardio Discussed with: nurses, consultants, rn case manager hospice Gabriela Leonard MD Sep 13, 2018 11:32
--- NOTE | 2018-09-13 11:51 | NUR ---
RD ASSESSMENT & RECOMMENDATIONS SEE CARE ACTIVITY FOR COMPLETE ASSESSMENT DAILY ESTIMATED NEEDS: Needs based on Underweight, critical care 56kg 27-32 kcals/kg 7107-4113 total kcals 1.2-2 g protein/kg 67-112 g total protein 25-30 mL/kg 2732-9191 total fluid mLs NUTRITION DIAGNOSIS: 1) Increased kcal and protein needs r/t underweight status as evidenced by pt is 74% of [place] Body Weight w/ generalized moderate to severe wasting. 2) Swallowing difficulty r/t respiratory status as evidenced by pt is vent dep via trach, w/ PEG. CURRENT TF:Jevity 1.2 @30 x22 hrs ENTERAL NUTRITION RECOMMENDATIONS: Osmolite 1.5 @50ml/hr x22 hrs + Prosource qdaily to provide 1100ml, 1650 kcal, 69g + 11g protein, 838ml free H2O - rec TF CHANGE to better meet est kcal and protein needs. - Start Osmolite 1.5 @20ml/hr for 6 hrs, advance 10ml/hr q4-6 hrs to goal - Flush per , HOB over 30 degrees Add PROSOURCE qdaily to better meet est pro needs ADDITIONAL RECOMMENDATIONS: 1) RE-calibrate bed scale for accurate CBW 2) F/up w/ WC eval 3) Check lytes daily, replete as needed
[2018-09-13 12:00] VITALS: BP 139/84
[2018-09-13] MEDS ORDERED: Sodium Phosphate 30 MM in NS 275 ML IV ONE (13:00)
--- NOTE | 2018-09-13 14:12 | Diagnostic Imaging Report ---
APPROVED REPORT CPT Code: 09547 Present Symptoms Lower Extremity Pain: BILATERAL: Imaging reveals a patent deep venous system bilaterally. There is no evidence of thrombus within the femoral, popliteal or tibial segments. The greater saphenous veins are also within normal limits. Doppler indicates normal spontaneous flow within these segments.
--- NOTE | 2018-09-13 15:21 | Consultation ---
History of Present Illness General Date patient seen: Sep 13, 2018 Chief Complaint: Malfunctioning Gastric Tube Present Illness HPI 68 y/o M with hx of CVA, dysphagia s/p PEG, HLD, GERD, chronic resp failure s/o trach, hypothyroidism, recent hip fracture, SNF resident presented to ED on 09/12 after PEG came off. In ED was found to be severely anemic (hgb 6.3). Also found to ahve R pleural effusion +/- infilttrate. Allergies: Coded Allergies: VANCOMYCIN (Verified Allergy, Unknown, 09/12/18) Medication History Scheduled Ascorbic Acid* (Ascorbic Acid*), 500 MG GT DAILY, (Reported) Aspirin* (Aspir 81*), 81 MG GT DAILY, (Reported) Atorvastatin Calcium* (Atorvastatin Calcium*), 80 MG GT BEDTIME, (Reported) Bisacodyl (Dulcolax), 10 MG RC DAILY, (Reported) Cholecalciferol (Vitamin D3)* (Vitamin D*), 5,000 UNIT GT DAILY, (Reported) Docusate Sodium* (Docusate Sodium*), 100 MG GT Q12HR, (Reported) Enoxaparin* (Lovenox*), 60 MG SUBQ EVERY 12 HOURS, (Reported) Gabapentin* (Gabapentin*), 400 MG GT THREE TIMES A DAY, (Reported) Levothyroxine Sodium* (Levothyroxine Sodium*), 75 MCG GT DAILY, (Reported) Lidocaine (Lidocaine), 5 % TP Q12HR, (Reported) Magnesium Hydroxide* (Milk Of Magnesia*), 30 ML ORAL DAILY, (Reported) Metoclopramide Hcl* (Reglan*), 10 MG GT THREE TIMES A DAY, (Reported) Metronidazole* (Flagyl*), 500 MG GT EVERY 8 HOURS, (Reported) Multivitamin with Minerals (Multivitamins with Minerals), 1 TAB GT DAILY, ( Reported) Pantoprazole* (Pantoprazole*), 40 MG GT DAILY, (Reported) Polyethylene Glycol 3350* (Miralax*), 17 GM GT DAILY, (Reported) Zinc Sulfate (Zinc Sulfate), 220 MG GT DAILY, (Reported) Scheduled PRN Acetaminophen* (Acetaminophen 325MG Tablet*), 650 MG GT Q4H PRN for Mild Pain/ Temp > 100.5, (Reported) Hydrocodone Bit/Acetaminophen 5-325* ([place] 5-325*), 1 TAB ORAL Q4H PRN for For Pain, (Reported) Methocarbamol* (Methocarbamol*), 500 MG GT Q8HR PRN for For Pain, (Reported) Na Phos,M-B/Na Phos,Di-Ba* (Fleet Enema*), 118 ML RECTAL for BOWEL MANAGEMENT, ( Reported) Oxycodone HCl (Oxycodone HCl), 5 MG GT Q6HR PRN for Moderate Pain (Pain Scale 4- 6), (Reported) Oxycodone Hcl* (Oxycodone Hcl*), 10 MG ORAL Q6HR PRN for Severe Pain (Pain Scale 7-10), (Reported) Oxycodone Hcl* (Oxycodone Hcl*), 10 MG GT Q6HR PRN for Severe Pain (Pain Scale 7 -10), (Reported) Miscellaneous Medications Ferrous Sulfate (Ferrous Sulfate), 330 MG GT, (Reported) Lactobacillus Acidophilus (Acidophilus), 4 EACH GT, (Reported) Discontinued Medications Carboxymethylcellulose (Methocel E 4 M), 500 MG MC, (Reported) Discontinued Reason: Therapy completed Docusate Sod/Senna (Docusate Sodium-Senna Tablet), 1 CAP GT TWICE A DAY, ( Reported) Discontinued Reason: Therapy completed Patient History Healthcare decision maker N Resuscitation status Do Not Resuscitate Advanced Directive on File Patient History Narrative Pmhx: as above Shx: The patient has a long history of smoking, but denies drinking or use of illicit drugs. Fhx: non contributory Review of Systems All Other Systems: negative except mentioned in HPI Physical Exam Physical Exam Narrative HEENT: Pupils were round, equal, and reactive to light. Sclerae were white. Conjunctivae were pale. ENT, mucous membranes are not dehydrated. . Pharynx was clear from exudate or tonsillar hypertrophy. NECK: Supple. There was no goiter. No mass. No lymphadenopathy. There was no JVD. No bruits. Carotid upstroke was 2+. LUNGS: Clear. HEART: PMI was in the fourth left intercostal space in midclavicular line. There was normal S1 and normal S2. There was no murmur. No arrhythmia. No S3. No S4. No pericardial rub. ABDOMEN: Soft, flat, and nontender without organomegaly. There was normal bowel sounds without bruits. There was no guarding. No rebound tenderness. No ascites. No hernia. No CVA tenderness. Liver span was 8 cm, smooth, and nontender. EXTREMITIES: There was no cyanosis, no clubbing, and no edema. Extremities were warm. Last 24 Hour Vital Signs Date Time Temp Pulse Resp B/P (MAP) Pulse Ox O2 Delivery O2 Flow Rate FiO2 09/13/18 13:24 83 25 40 09/13/18 12:00 40 09/13/18 12:00 Mechanical Ventilator 09/13/18 12:00 98.5 84 24 139/84 (102) 99 09/13/18 11:48 82 09/13/18 10:47 86 27 40 09/13/18 08:47 84 24 40 09/13/18 08:00 Mechanical Ventilator 09/13/18 08:00 40 09/13/18 08:00 99.2 79 22 136/83 (100) 100 09/13/18 07:39 82 09/13/18 07:29 84 20 40 09/13/18 05:30 85 28 40 09/13/18 04:00 40 09/13/18 04:00 98.6 84 24 120/69 (86) 100 09/13/18 04:00 Mechanical Ventilator 09/13/18 03:32 81 09/13/18 00:54 73 19 40 09/13/18 00:00 Mechanical Ventilator 09/13/18 00:00 98.2 75 13 114/67 (83) 100 09/13/18 00:00 40 09/12/18 23:24 76 09/12/18 23:03 76 15 40 09/12/18 22:50 79 29 35 09/12/18 21:50 98.6 81 16 113/67 100 Mechanical Ventilator 09/12/18 21:30 40 09/12/18 21:30 Mechanical Ventilator 09/12/18 21:30 98.2 79 19 123/73 (90) 98 09/12/18 21:09 80 17 40 09/12/18 19:50 82 19 40 09/12/18 19:44 82 19 Mechanical Ventilator 40 09/12/18 17:50 99.9 83 21 92/62 99 Mechanical Ventilator 5.0 09/12/18 17:30 85 18 40 09/12/18 16:04 99.3 86 21 103/61 99 Mechanical Ventilator 5.0 09/12/18 15:15 99 21 40 09/12/18 15:09 99.3 88 21 106/67 99 Mechanical Ventilator 5.0 Intake and Output 09/12/18 09/13/18 19:00 07:00 Intake Total 60 ml 370 ml Output Total 150 ml Balance 60 ml 220 ml Intake Free Water 60 ml 100 ml Tube Feeding 270 ml Output Urine Total 150 ml # Bowel Movements 4 Laboratory Tests Test 09/12/18 17:30 09/12/18 17:40 09/12/18 18:00 09/13/18 03:00 White Blood Count 8.8 K/UL (4.8-10.8) Red Blood Count 2.16 M/UL (4.70-6.10) L Hemoglobin 6.3 G/DL (14.2-18.0) *L Hematocrit 19.3 % (42.0-52.0) L Mean Corpuscular Volume 89 FL (80-99) Mean Corpuscular Hemoglobin 29.1 PG (27.0-31.0) Mean Corpuscular Hemoglobin Concent 32.5 G/DL (32.0-36.0) Red Cell Distribution Width 13.5 % (11.6-14.8) Platelet Count 227 K/UL (150-450) Mean Platelet Volume 5.7 FL (6.5-10.1) L Neutrophils (%) (Auto) % (45.0-75.0) Lymphocytes (%) (Auto) % (20.0-45.0) Monocytes (%) (Auto) % (1.0-10.0) Eosinophils (%) (Auto) % (0.0-3.0) Basophils (%) (Auto) % (0.0-2.0) Differential Total Cells Counted 100 Neutrophils % (Manual) 64 % (45-75) Lymphocytes % (Manual) 22 % (20-45) Monocytes % (Manual) 4 % (1-10) Eosinophils % (Manual) 0 % (0-3) Basophils % (Manual) 0 % (0-2) Band Neutrophils 10 % (0-8) H Platelet Estimate Adequate Platelet Morphology Normal Hypochromasia 1+ Anisocytosis 1+ Sodium Level 132 MMOL/L (136-145) L Potassium Level 4.0 MMOL/L (3.5-5.1) Chloride Level 97 MMOL/L (98-107) L Carbon Dioxide Level 28 MMOL/L (21-32) Anion Gap 7 mmol/L (5-15) Blood Urea Nitrogen 19 mg/dL (7-18) H Creatinine 1.0 MG/DL (0.55-1.30) Estimat Glomerular Filtration Rate > 60 mL/min (>60) Glucose Level 82 MG/DL (74-106) Lactic Acid Level 1.00 mmol/L (0.4-2.0) Calcium Level 8.8 MG/DL (8.5-10.1) Total Bilirubin 0.2 MG/DL (0.2-1.0) Aspartate Amino Transf (AST/SGOT) 32 U/L (15-37) Alanine Aminotransferase (ALT/SGPT) 17 U/L (12-78) Alkaline Phosphatase 85 U/L (46-116) Total Creatine Kinase 95 U/L (26-308) Creatine Kinase MB 1.8 NG/ML (0.0-3.6) Creatine Kinase MB Relative Index 1.8 Troponin I 0.000 ng/mL (0.000-0.056) Total Protein 7.1 G/DL (6.4-8.2) Albumin 2.0 G/DL (3.4-5.0) L Globulin 5.1 g/dL Albumin/Globulin Ratio 0.4 (1.0-2.7) L Lipase 51 U/L (73-393) L Arterial Blood pH 7.454 (7.350-7.450) Arterial Blood Partial Pressure CO2 43.4 mmHg (35.0-45.0) Arterial Blood Partial Pressure O2 119.8 mmHg (75.0-100.0) H Arterial Blood HCO3 29.8 mmol/L (22.0-26.0) H Arterial Blood Oxygen Saturation 98.2 % (95-100) Arterial Blood Base Excess 5.3 (-2-2) H Aakash Test Positive Urine Color Pale yellow Urine Appearance Clear Urine pH 7 (4.5-8.0) Urine Specific [place] 1.005 (1.005-1.035) Urine Protein 2+ (NEGATIVE) H Urine Glucose (UA) Negative (NEGATIVE) Urine Ketones Negative (NEGATIVE) Urine Blood 2+ (NEGATIVE) H Urine Nitrite Negative (NEGATIVE) Urine Bilirubin Negative (NEGATIVE) Urine Urobilinogen Normal MG/DL (0.0-1.0) Urine Leukocyte Esterase 1+ (NEGATIVE) H Urine RBC 5-10 /HPF (0 - 0) H Urine WBC 2-4 /HPF (0 - 0) Urine Squamous Epithelial Cells None /LPF (NONE/OCC) Urine Bacteria Few /HPF (NONE) Stool Occult Blood Negative (NEGATIVE) Test 09/13/18 07:55 White Blood Count 6.1 K/UL (4.8-10.8) Red Blood Count 3.27 M/UL (4.70-6.10) L Hemoglobin 9.6 G/DL (14.2-18.0) #L Hematocrit 28.9 % (42.0-52.0) #L Mean Corpuscular Volume 88 FL (80-99) Mean Corpuscular Hemoglobin 29.5 PG (27.0-31.0) Mean Corpuscular Hemoglobin Concent 33.4 G/DL (32.0-36.0) Red Cell Distribution Width 13.5 % (11.6-14.8) Platelet Count 218 K/UL (150-450) Mean Platelet Volume 5.3 FL (6.5-10.1) L Neutrophils (%) (Auto) % (45.0-75.0) Lymphocytes (%) (Auto) % (20.0-45.0) Monocytes (%) (Auto) % (1.0-10.0) Eosinophils (%) (Auto) % (0.0-3.0) Basophils (%) (Auto) % (0.0-2.0) Differential Total Cells Counted 100 Neutrophils % (Manual) 82 % (45-75) H Lymphocytes % (Manual) 10 % (20-45) L Monocytes % (Manual) 7 % (1-10) Eosinophils % (Manual) 1 % (0-3) Basophils % (Manual) 0 % (0-2) Band Neutrophils 0 % (0-8) Other Cell Type Pathologist comment Platelet Estimate Adequate Platelet Morphology Normal Red Blood Cell Morphology Normal Erythrocyte Sedimentation Rate 120 MM/HR (0-20) H Reticulocyte Count 0.6 % (0.0-2.0) Prothrombin Time 11.4 SEC (9.30-11.50) Prothromb Time International Ratio 1.1 (0.9-1.1) Activated Partial Thromboplast Time 37 SEC (23-33) H Sodium Level 133 MMOL/L (136-145) L Potassium Level 3.7 MMOL/L (3.5-5.1) Chloride Level 100 MMOL/L (98-107) Carbon Dioxide Level 28 MMOL/L (21-32) Anion Gap 6 mmol/L (5-15) Blood Urea Nitrogen 15 mg/dL (7-18) Creatinine 0.8 MG/DL (0.55-1.30) Estimat Glomerular Filtration Rate > 60 mL/min (>60) Glucose Level 104 MG/DL (74-106) Calcium Level 8.5 MG/DL (8.5-10.1) Phosphorus Level 1.8 MG/DL (2.5-4.9) L Iron Level 23 ug/dL (50-175) L Total Iron Binding Capacity 75 ug/dL (250-450) L Percent Iron Saturation 31 % (15-50) Unsaturated Iron Binding 52 ug/dL (112-346) L Ferritin 1416 NG/ML (8-388) H Lactate Dehydrogenase 131 U/L (81-234) Albumin 1.9 G/DL (3.4-5.0) L Carcinoembryonic Antigen Pending Vitamin B12 Level 1217 PG/ML (193-986) H Folate 13.6 NG/ML (8.6-58.9) Microbiology Date/Time Source Procedure Growth Status 09/13/18 03:00 Sputum Gram Stain - Final Resulted 09/13/18 03:00 Sputum Sputum Culture Pending Resulted Height (Feet): 5 Height (Inches): 10.00 Weight (Pounds): 131 Medications Current Medications Medications (Trade) Dose Ordered Sig/Radha Route PRN Reason Start Time Stop Time Status Last Admin Dose Admin Acetaminophen (Tylenol) 650 mg Q4H PRN ORAL FEVER 09/12/18 21:15 10/12/18 21:14 Albuterol/ Ipratropium (Albuterol/ Ipratropium) 3 ml Q4H PRN HHN Shortness of Breath 09/12/18 21:15 09/17/18 21:14 Dextrose (Dextrose 50%) 25 ml Q30M PRN IV Hypoglycemia 09/12/18 21:15 10/12/18 21:14 Dextrose (Dextrose 50%) 50 ml Q30M PRN IV Hypoglycemia 09/12/18 21:30 10/12/18 21:29 Gabapentin (Neurontin) 400 mg THREE TIMES A DAY GT 09/13/18 09:00 10/13/18 08:59 09/13/18 12:39 Heparin Sodium (Porcine) (Heparin 5000 units/ml) 5,000 units EVERY 12 HOURS SUBQ 09/13/18 09:00 10/13/18 08:59 09/13/18 09:07 Iron Sucrose 100 mg/Sodium Chloride 60 ml @ 240 mls/hr BEDTIME IV 09/13/18 21:00 09/17/18 21:14 Levothyroxine Sodium (Synthroid) 75 mcg DAILY GT 09/13/18 09:00 10/13/18 08:59 09/13/18 09:05 Lorazepam (Ativan 2mg/ml 1ml) 2 mg Q2H PRN IV For Anxiety 09/12/18 21:15 09/19/18 21:14 Morphine Sulfate (Morphine Sulfate) 4 mg Q4H PRN IVP Severe Pain (Pain Scale 7-10) 09/12/18 21:15 09/19/18 21:14 Ondansetron HCl (Zofran) 4 mg Q6H PRN IVP Nausea & Vomiting 09/12/18 21:15 10/12/18 21:14 Pantoprazole (Protonix) 40 mg DAILY IV 09/13/18 09:00 10/13/18 08:59 09/13/18 09:05 Polyethylene Glycol (Miralax) 17 gm DAILYPRN PRN ORAL Constipation 09/12/18 21:15 10/12/18 21:14 Sodium Phosphate 30 mm/Sodium Chloride 285 ml @ 47.5 mls/hr ONCE ONCE IV 09/13/18 13:00 09/13/18 18:59 09/13/18 12:39 Assessment/Plan Assessment/Plan Abx: None Assessment: Acute anemia- ?bleeding, ?source Afebrile No leukocytosis- no evidence of infectious process at present -u/a neg -CXR: Prominent interstitial markings are seen in the right lung. No focal airspace consolidation. GT malfunction CVA dysphagia s/p PEG HLD GERD chronic resp failure s/p trach hypothyroidism recent hip fracture SNF resident Plan: -Continue to monitor off abx -f/u cx -Monitor CBC/CMP, temperatures -GI f/u -aspiration precautions Thank you for this consultation. Will continue to follow along with you. Discussed with JOSE DANIEL. Yoselin Nguyen M.D. Sep 13, 2018 15:21
[2018-09-13 16:00] VITALS: BP 121/75
--- NOTE | 2018-09-13 18:57 | NUR ---
RESPIRATORY NOTE: Received pt on AC 12, 500VT 40%, PEEP +5. Pt trach-dependent w/ a cuffed, Shiley 6 tube. Pt asleep/disoriented, responds to stimuli. B/S natalie. rhonchi, sxn small amounts of thick, pale-yellow secretions. Vent plugged into red outlet, ambubag at bedside. Pt in no apparent distress at this time. Will continue plan of care.
--- NOTE | 2018-09-13 19:30 | NUR ---
HAND-OFF: Report given to JOSE DANIEL Pollock. Patient stable.
--- NOTE | 2018-09-13 19:31 | NUR ---
NURSE NOTES: Report received from Hanane Ray RN. Pt A/Ox2-3, non-verbal. cracking unit operator shows SR. Pt ventilator dependent with shiley 8. Ventilator settings: AC12, VT500 FiO2: 35%, PEEP 5. Pt has a GT in place with jevity 1.2 running @ 30 ml/hr. Condom catheter present and draining well. Pt has sacral and perianal redness present. a LH22g and a RW20g IV are present, patent and asymptomatic. Bed in lowest position, bed alarms placed, Call light within reach. Will continue to monitor and with patients plan of care.
[2018-09-13 20:00] VITALS: BP 108/61
[2018-09-13] MEDS: Iron Sucrose 100 MG in NS 55 ML IV SCH (21:06)
[2018-09-14] VITALS: BP 105/63
[2018-09-14 04:00] VITALS: BP 130/81
[2018-09-14 05:27] LABS: BASOPHILS % (AUTO) 0.4 % (0.0-2.0); EOSINOPHILS % (AUTO) 2.8 % (0.0-3.0); HEMATOCRIT 26.7 % (42.0-52.0); HEMOGLOBIN 8.9 G/DL (14.2-18.0); LYMPHOCYTES % (AUTO) 25.8 % (20.0-45.0); MEAN CORPUSCULAR VOLUME 88 FL (80-99); MONOCYTES % (AUTO) 9.8 % (1.0-10.0); NEUTROPHILS % (AUTO) 61.2 % (45.0-75.0); PLATELET COUNT 178 K/UL (150-450); RED BLOOD COUNT 3.03 M/UL (4.70-6.10); RED CELL DISTRIBUTION WIDTH 13.4 % (11.6-14.8); WHITE BLOOD COUNT 5.7 K/UL (4.8-10.8)
--- NOTE | 2018-09-14 07:02 | NUR ---
Received Patient on Vent ACVC RR 12, VT 500, Fio2 40%, PEEP +5. Patient is trached with a cuffed Shiley 6 tracheostomy tube, secured with tracheostomy ties. Bilateral rhonchi heard upon auscultation. Suction thick white secretions via tracheostomy as needed. Patient currently sleeping, lying comfortable in bed. Vent plugged into red outlet. Alarms on and audible. Will continue to monitor the patient throughout the day.
[2018-09-14 08:00] VITALS: BP 129/80
[2018-09-14] MEDS: Pantoprazole Inj IV SCH (08:32)
[2018-09-14] MEDS: Heparin 5000 units/ml inj SUBQ SCH ×2 (08:41→20:33)
--- NOTE | 2018-09-14 09:11 | Pulmonolgy Critical Care Note ---
Critical Care - Asmt/Plan Problems: (1) Nosocomial pneumonia (2) Chronic respiratory failure (3) Severe anemia (4) Hypotension (5) PEG (percutaneous endoscopic gastrostomy) adjustment/replacement/removal (6) Hypothyroidism (7) Hip fracture (8) Protein-calorie malnutrition, severe (9) History of CVA (cerebrovascular accident) (10) Feeding by G-tube Respiratory: monitor respiratory rate, adjust FIO2, CXR Cardiac: continue pressors, continue to monitor HR/BP Renal: F/U I&O, check electrolytes Infectious Disease: check cultures Gastrointestinal: continue feedings/current rate, hold feedings Endocrine: monitor blood sugar, check TSH Hematologic: monitor H/H, transfuse if hgb<8.5 Neurologic: PRN Ativan, PRN Morphine, keep patient comfortable Prophylaxis: Protonix, Heparin Disposition: keep in ICU Time Spent (Minutes): 40 Notes Reviewed: asbestos microscopist, ID Discussed with: nurses, consultants Critical Care - Objective Last 24 Hour Vital Signs Date Time Temp Pulse Resp B/P (MAP) Pulse Ox O2 Delivery O2 Flow Rate FiO2 09/14/18 07:29 65 17 40 09/14/18 05:28 67 18 40 09/14/18 04:00 40 09/14/18 04:00 67 09/14/18 04:00 Mechanical Ventilator 09/14/18 04:00 98.6 67 17 130/81 (97) 99 09/14/18 03:15 66 15 40 09/14/18 00:45 68 20 40 09/14/18 00:00 Mechanical Ventilator 09/14/18 00:00 98.2 67 16 105/63 (77) 98 09/14/18 00:00 67 09/13/18 22:56 71 17 40 09/13/18 20:43 73 20 40 09/13/18 20:00 Mechanical Ventilator 09/13/18 20:00 98.6 71 20 108/61 (77) 99 09/13/18 20:00 75 09/13/18 20:00 40 09/13/18 18:55 80 17 40 09/13/18 17:18 80 14 40 09/13/18 16:00 97.5 79 16 121/75 (90) 99 09/13/18 16:00 40 09/13/18 16:00 Mechanical Ventilator 09/13/18 15:22 80 09/13/18 15:22 79 19 40 09/13/18 13:24 83 25 40 09/13/18 12:00 40 09/13/18 12:00 Mechanical Ventilator 09/13/18 12:00 98.5 84 24 139/84 (102) 99 09/13/18 11:48 82 09/13/18 10:47 86 27 40 Status: awake Condition: critical Neck: full ROM Lungs: chest wall tender Heart: HR/BP stable Abdomen: soft, active bowel sounds Extremities: no C/C/E, edema Decubiti: location Micro: Microbiology Date/Time Source Procedure Growth Status 09/12/18 17:35 Blood Blood Culture - Preliminary NO GROWTH AFTER 24 HOURS Resulted 09/13/18 03:00 Sputum Gram Stain - Final Resulted 09/13/18 03:00 Sputum Culture - Preliminary Gram Negative Nathan Resulted Critical Care - Subjective ROS Limited/Unobtainable: Yes Condition: critical EKG Rhythm: Sinus Rhythm FI02: 40 Vent Support Breath Rate: 12 Vent Support Mode: AC Vent Tidal Volume: 500 Sputum Amount: Small PEEP: 5.0 PIP: 31 Tube Feeding Amount: 30 I&O: Intake and Output 09/13/18 09/14/18 19:00 07:00 Intake Total 615.000 ml 440 ml Output Total 150 ml 100 ml Balance 465.000 ml 340 ml Intake Free Water 60 ml 50 ml IV Total 285.000 ml 60 ml Tube Feeding 270 ml 330 ml Output Urine Total 150 ml 100 ml # Voids 2 3 CXR: RLL infiltrate Labs: Laboratory Tests Test 09/14/18 03:20 White Blood Count 5.7 K/UL (4.8-10.8) Red Blood Count 3.03 M/UL (4.70-6.10) L Hemoglobin 8.9 G/DL (14.2-18.0) L Hematocrit 26.7 % (42.0-52.0) L Mean Corpuscular Volume 88 FL (80-99) Mean Corpuscular Hemoglobin 29.4 PG (27.0-31.0) Mean Corpuscular Hemoglobin Concent 33.4 G/DL (32.0-36.0) Red Cell Distribution Width 13.4 % (11.6-14.8) Platelet Count 178 K/UL (150-450) Mean Platelet Volume 5.7 FL (6.5-10.1) L Neutrophils (%) (Auto) 61.2 % (45.0-75.0) Lymphocytes (%) (Auto) 25.8 % (20.0-45.0) Monocytes (%) (Auto) 9.8 % (1.0-10.0) Eosinophils (%) (Auto) 2.8 % (0.0-3.0) Basophils (%) (Auto) 0.4 % (0.0-2.0) Gabriela Leonard MD Sep 14, 2018 09:11
--- NOTE | 2018-09-14 09:27 | NUR ---
Patients spontaneous tidal volumes drop below 100mL when placed on CPAP. Will not continue to attempt to wean.
--- NOTE | 2018-09-14 10:31 | Progress Note ---
DATE: 09/13/2018 PHYSICAL EXAMINATION: VITAL SIGNS: Blood pressure 121/75, his pulse is 79, respirations of 16, and temperature of 97.5. HEENT: Eyes were normal. ENT, mucous membranes were moist and intact. NECK: Supple with no JVD without lymph nodes. Tracheostomy site is clean. LUNGS: Clear without rhonchi, rales, or wheezing. Secretions are small, thin, and del real. HEART: Normal sounds with regular beats. No tachycardia at rest. ABDOMEN: Soft and nontender with normal bowel sounds. Gastrostomy site is clean. EXTREMITIES: Warm without cyanosis, clubbing, or edema. LABORATORY AND DIAGNOSTIC DATA: Hemoglobin is 10.6, hematocrit 28.9 with MCV of 88, WBC of 6.1, and platelet 218,000. His BUN and creatinine are 16 and 0.8 respectively. His sodium is 133, potassium 3.7, chloride 100, and CO2 is 28. His calcium is 8.5. His phosphorus is 1.8. His iron ____ saturation is 31. Ferritin ____. Albumin is 1.9. pending. B12 ____. Stool for occult blood is negative . IMPRESSION: The patient packed RBC. G-tube ____. The patient can be discharged to the extended care facility in the a.m. Shy Peck M.D. DR: NEO JOB#: [id number] CC:
[2018-09-14 12:00] VITALS: BP 135/70
--- NOTE | 2018-09-14 12:00 | NUR ---
NURSE NOTES: Received patient from JOSE DANIEL Pollock. Patient sleeping at this time. Patient VS stable at this time with no sign of acute distress. Patient is nonverbal but is alert and oriented times 2 to 3. Patient reported to follow commands. Patient showing sinus rhythm on the monitor. Patient on trach to ventilator setting of AC 12, TV 500, FiO2 35%, and PEEP 5. Patient tolerating setting with saturation of 99% at this time. Patient has a G tube that is patent and asymptomatic at this time. Patient running jevity 1.2 at 30mL/hr through the G tube at this time with no residual. Patient has a condom catheter in place at this time. patient has sacral redness and perineal redness. Patient has Optifoam and skin barrier film on sacrum. Patient has right wrist 20 sugey PIV and left hand 22G PIV that are both asymptomatic, intact, and saline locked at this time. Patient's labs within defined limits this morning. Patient bed in low position with bed alarm on and call light in reach at this time.
[2018-09-14] MEDS ORDERED: Sodium Phosphate 30 MM in NS 275 ML IV ONE (12:45)
--- NOTE | 2018-09-14 15:21 | Infectious Diseases Prog Note ---
Assessment/Plan Assessment/Plan Abx: None Assessment: Acute anemia- ?bleeding, ?source Afebrile No leukocytosis- no evidence of infectious process at present -u/a neg -CXR: Prominent interstitial markings are seen in the right lung. No focal airspace consolidation. -sp cx GNR; likely colonizer GT malfunction CVA dysphagia s/p PEG HLD GERD chronic resp failure s/p trach hypothyroidism recent hip fracture SNF resident Plan: -Continue to monitor off abx -f/u cx -Monitor CBC/CMP, temperatures -GI f/u -aspiration precautions -CXR am Thank you for this consultation. Will continue to follow along with you. Discussed with RN. Subjective Allergies: Coded Allergies: VANCOMYCIN (Verified Allergy, Unknown, 09/12/18) Subjective afebrile no leukocytosis off abx Objective Vital Signs Last 24 Hour Vital Signs Date Time Temp Pulse Resp B/P (MAP) Pulse Ox O2 Delivery O2 Flow Rate FiO2 09/14/18 13:29 63 16 40 09/14/18 12:00 35 09/14/18 12:00 98.8 77 20 135/70 (91) 99 09/14/18 12:00 68 09/14/18 12:00 Mechanical Ventilator 09/14/18 11:14 65 21 40 09/14/18 09:27 65 16 40 09/14/18 08:00 98.2 67 20 129/80 (96) 100 09/14/18 08:00 65 09/14/18 08:00 Mechanical Ventilator 09/14/18 08:00 40 09/14/18 07:29 65 17 40 09/14/18 05:28 67 18 40 09/14/18 04:00 40 09/14/18 04:00 67 09/14/18 04:00 Mechanical Ventilator 09/14/18 04:00 98.6 67 17 130/81 (97) 99 09/14/18 03:15 66 15 40 09/14/18 00:45 68 20 40 09/14/18 00:00 Mechanical Ventilator 09/14/18 00:00 98.2 67 16 105/63 (77) 98 09/14/18 00:00 67 09/13/18 22:56 71 17 40 09/13/18 20:43 73 20 40 09/13/18 20:00 Mechanical Ventilator 09/13/18 20:00 98.6 71 20 108/61 (77) 99 09/13/18 20:00 75 09/13/18 20:00 40 09/13/18 18:55 80 17 40 09/13/18 17:18 80 14 40 09/13/18 16:00 97.5 79 16 121/75 (90) 99 09/13/18 16:00 40 09/13/18 16:00 Mechanical Ventilator 09/13/18 15:22 80 09/13/18 15:22 79 19 40 Height (Feet): 5 Height (Inches): 10.00 Weight (Pounds): 131 Objective HEENT: Pupils were round, equal, and reactive to light. Sclerae were white. Conjunctivae were pale. ENT, mucous membranes are not dehydrated. . Pharynx was clear from exudate or tonsillar hypertrophy. NECK: Supple. There was no goiter. No mass. No lymphadenopathy. There was no JVD. No bruits. Carotid upstroke was 2+. LUNGS: Clear. HEART: PMI was in the fourth left intercostal space in midclavicular line. There was normal S1 and normal S2. There was no murmur. No arrhythmia. No S3. No S4. No pericardial rub. ABDOMEN: Soft, flat, and nontender without organomegaly. There was normal bowel sounds without bruits. There was no guarding. No rebound tenderness. No ascites. No hernia. No CVA tenderness. Liver span was 8 cm, smooth, and nontender. EXTREMITIES: There was no cyanosis, no clubbing, and no edema. Extremities were warm. Microbiology Date/Time Source Procedure Growth Status 09/12/18 17:35 Blood Blood Culture - Preliminary NO GROWTH AFTER 24 HOURS Resulted 09/13/18 03:00 Sputum Gram Stain - Final Resulted 09/13/18 03:00 Sputum Culture - Preliminary Gram Negative Nathan Resulted Laboratory Tests Test 09/14/18 03:20 White Blood Count 5.7 K/UL (4.8-10.8) Red Blood Count 3.03 M/UL (4.70-6.10) L Hemoglobin 8.9 G/DL (14.2-18.0) L Hematocrit 26.7 % (42.0-52.0) L Mean Corpuscular Volume 88 FL (80-99) Mean Corpuscular Hemoglobin 29.4 PG (27.0-31.0) Mean Corpuscular Hemoglobin Concent 33.4 G/DL (32.0-36.0) Red Cell Distribution Width 13.4 % (11.6-14.8) Platelet Count 178 K/UL (150-450) Mean Platelet Volume 5.7 FL (6.5-10.1) L Neutrophils (%) (Auto) 61.2 % (45.0-75.0) Lymphocytes (%) (Auto) 25.8 % (20.0-45.0) Monocytes (%) (Auto) 9.8 % (1.0-10.0) Eosinophils (%) (Auto) 2.8 % (0.0-3.0) Basophils (%) (Auto) 0.4 % (0.0-2.0) Current Medications Medications (Trade) Dose Ordered Sig/Radha Route PRN Reason Start Time Stop Time Status Last Admin Dose Admin Acetaminophen (Tylenol) 650 mg Q4H PRN ORAL FEVER 09/12/18 21:15 10/12/18 21:14 Albuterol/ Ipratropium (Albuterol/ Ipratropium) 3 ml Q4H PRN HHN Shortness of Breath 09/12/18 21:15 09/17/18 21:14 Dextrose (Dextrose 50%) 25 ml Q30M PRN IV Hypoglycemia 09/12/18 21:15 10/12/18 21:14 Dextrose (Dextrose 50%) 50 ml Q30M PRN IV Hypoglycemia 09/12/18 21:30 10/12/18 21:29 Gabapentin (Neurontin) 400 mg THREE TIMES A DAY GT 09/13/18 09:00 10/13/18 08:59 09/14/18 13:14 Heparin Sodium (Porcine) (Heparin 5000 units/ml) 5,000 units EVERY 12 HOURS SUBQ 09/13/18 09:00 10/13/18 08:59 09/14/18 08:41 Iron Sucrose 100 mg/Sodium Chloride 60 ml @ 240 mls/hr BEDTIME IV 09/13/18 21:00 09/17/18 21:14 09/13/18 21:06 Levothyroxine Sodium (Synthroid) 75 mcg DAILY GT 09/13/18 09:00 10/13/18 08:59 09/14/18 08:32 Lorazepam (Ativan 2mg/ml 1ml) 2 mg Q2H PRN IV For Anxiety 09/12/18 21:15 09/19/18 21:14 Morphine Sulfate (Morphine Sulfate) 4 mg Q4H PRN IVP Severe Pain (Pain Scale 7-10) 09/12/18 21:15 09/19/18 21:14 Ondansetron HCl (Zofran) 4 mg Q6H PRN IVP Nausea & Vomiting 09/12/18 21:15 10/12/18 21:14 Pantoprazole (Protonix) 40 mg DAILY IV 09/13/18 09:00 10/13/18 08:59 09/14/18 08:32 Polyethylene Glycol (Miralax) 17 gm DAILYPRN PRN ORAL Constipation 09/12/18 21:15 10/12/18 21:14 Sodium Phosphate 30 mm/Sodium Chloride 285 ml @ 47.5 mls/hr ONCE ONCE IV 09/14/18 12:45 09/14/18 18:44 09/14/18 13:14 Yoselin Nguyen M.D. Sep 14, 2018 15:21
[2018-09-14 16:00] VITALS: BP 117/62
--- NOTE | 2018-09-14 18:28 | NUR ---
CASE MANAGEMENT: REVIEW SI: GT MALFUNCTION T 98.8 HR 77 RR 20 BP 135/70 SAT 99% MECH VENT FIO2 40 H/H 8.9/26.7 IS: VENOFER IV QHS NaPO4 IV BOLUS X1 STEP DOWN UNIT STATUS DCP: PATIENT IS FROM [facility]
--- NOTE | 2018-09-14 19:10 | NUR ---
RESPIRATORY NOTE: PT. RECEIVED STABLE ON AC,VC 12, 500, 40%, +5. ALARMS ON AND AUDIBLE. VENT CIRCUIT SECURE AND OUT OF THE WAY. ALL VS WNL. NO S/S OF RESPIRATORY DISTRESS NOTED AT THIS TIME. WILL CONTINUE TO MONITOR.
--- NOTE | 2018-09-14 19:32 | NUR ---
NURSE NOTES: Received patient in bed with eyes closed. Trach to vent on AC 12, VT 500, p5 fio2 35%. GT feeding Jevity 1.2 @ 30 cc/hr with no residual noted at this time. Right wrist 20 G IV site patent and intact at this time. Condom cath draining by gravity. on P200 mattress at this time. Bed in lowest position, side rails upx3. No signs of distress noted. Will continue to monitor
--- NOTE | 2018-09-14 19:32 | NUR ---
HAND-OFF: Report given to JOSE DANIEL Grissom. Patient VS stable at this time with no sign of acute distress.
[2018-09-14 20:00] VITALS: BP 112/72
[2018-09-14] MEDS: Iron Sucrose 100 MG in NS 55 ML IV SCH (20:32)
--- NOTE | 2018-09-14 23:33 | NUR ---
NURSE NOTES: MD Peck Came and gave order for patient to be discharged to [facility]. Charge Nurse José aware at this time.
--- NOTE | 2018-09-14 23:43 | Consultation ---
History of Present Illness General Chief Complaint: Malfunctioning Gastric Tube Present Illness Allergies: Coded Allergies: VANCOMYCIN (Verified Allergy, Unknown, 09/12/18) Medication History Scheduled Ascorbic Acid* (Ascorbic Acid*), 500 MG GT DAILY, (Reported) Aspirin* (Aspir 81*), 81 MG GT DAILY, (Reported) Atorvastatin Calcium* (Atorvastatin Calcium*), 80 MG GT BEDTIME, (Reported) Bisacodyl (Dulcolax), 10 MG RC DAILY, (Reported) Cholecalciferol (Vitamin D3)* (Vitamin D*), 5,000 UNIT GT DAILY, (Reported) Docusate Sodium* (Docusate Sodium*), 100 MG GT Q12HR, (Reported) Enoxaparin* (Lovenox*), 60 MG SUBQ EVERY 12 HOURS, (Reported) Gabapentin* (Gabapentin*), 400 MG GT THREE TIMES A DAY, (Reported) Levothyroxine Sodium* (Levothyroxine Sodium*), 75 MCG GT DAILY, (Reported) Lidocaine (Lidocaine), 5 % TP Q12HR, (Reported) Magnesium Hydroxide* (Milk Of Magnesia*), 30 ML ORAL DAILY, (Reported) Metoclopramide Hcl* (Reglan*), 10 MG GT THREE TIMES A DAY, (Reported) Metronidazole* (Flagyl*), 500 MG GT EVERY 8 HOURS, (Reported) Multivitamin with Minerals (Multivitamins with Minerals), 1 TAB GT DAILY, ( Reported) Pantoprazole* (Pantoprazole*), 40 MG GT DAILY, (Reported) Polyethylene Glycol 3350* (Miralax*), 17 GM GT DAILY, (Reported) Zinc Sulfate (Zinc Sulfate), 220 MG GT DAILY, (Reported) Scheduled PRN Acetaminophen* (Acetaminophen 325MG Tablet*), 650 MG GT Q4H PRN for Mild Pain/ Temp > 100.5, (Reported) Hydrocodone Bit/Acetaminophen 5-325* (Costilla 5-325*), 1 TAB ORAL Q4H PRN for For Pain, (Reported) Methocarbamol* (Methocarbamol*), 500 MG GT Q8HR PRN for For Pain, (Reported) Na Phos,M-B/Na Phos,Di-Ba* (Fleet Enema*), 118 ML RECTAL for BOWEL MANAGEMENT, ( Reported) Oxycodone HCl (Oxycodone HCl), 5 MG GT Q6HR PRN for Moderate Pain (Pain Scale 4- 6), (Reported) Oxycodone Hcl* (Oxycodone Hcl*), 10 MG ORAL Q6HR PRN for Severe Pain (Pain Scale 7-10), (Reported) Oxycodone Hcl* (Oxycodone Hcl*), 10 MG GT Q6HR PRN for Severe Pain (Pain Scale 7 -10), (Reported) Miscellaneous Medications Ferrous Sulfate (Ferrous Sulfate), 330 MG GT, (Reported) Lactobacillus Acidophilus (Acidophilus), 4 EACH GT, (Reported) Discontinued Medications Carboxymethylcellulose (Methocel E 4 M), 500 MG MC, (Reported) Discontinued Reason: Therapy completed Docusate Sod/Senna (Docusate Sodium-Senna Tablet), 1 CAP GT TWICE A DAY, ( Reported) Discontinued Reason: Therapy completed Patient History Healthcare decision maker N Resuscitation status Do Not Resuscitate Advanced Directive on File Physical Exam Last 24 Hour Vital Signs Date Time Temp Pulse Resp B/P (MAP) Pulse Ox O2 Delivery O2 Flow Rate FiO2 09/14/18 22:39 97 14 40 09/14/18 21:15 68 16 40 09/14/18 20:00 68 09/14/18 20:00 Mechanical Ventilator 09/14/18 20:00 35 09/14/18 20:00 98.0 69 19 112/72 (85) 100 09/14/18 19:10 68 13 40 09/14/18 17:10 67 18 40 09/14/18 16:00 35 09/14/18 16:00 Mechanical Ventilator 09/14/18 16:00 66 09/14/18 16:00 97.1 66 19 117/62 (80) 100 09/14/18 15:18 66 17 40 09/14/18 13:29 63 16 40 09/14/18 12:00 35 09/14/18 12:00 98.8 77 20 135/70 (91) 99 09/14/18 12:00 68 09/14/18 12:00 Mechanical Ventilator 09/14/18 11:14 65 21 40 09/14/18 09:27 65 16 40 09/14/18 08:00 98.2 67 20 129/80 (96) 100 09/14/18 08:00 65 09/14/18 08:00 Mechanical Ventilator 09/14/18 08:00 40 09/14/18 07:29 65 17 40 09/14/18 05:28 67 18 40 09/14/18 04:00 40 09/14/18 04:00 67 09/14/18 04:00 Mechanical Ventilator 09/14/18 04:00 98.6 67 17 130/81 (97) 99 09/14/18 03:15 66 15 40 09/14/18 00:45 68 20 40 09/14/18 00:00 Mechanical Ventilator 09/14/18 00:00 98.2 67 16 105/63 (77) 98 09/14/18 00:00 67 Intake and Output 09/13/18 09/14/18 18:59 06:59 Intake Total 614.125 ml 500.875 ml Output Total 150 ml 100 ml Balance 464.125 ml 400.875 ml Intake Free Water 90 ml 50 ml IV Total 254.125 ml 90.875 ml Tube Feeding 270 ml 360 ml Output Urine Total 150 ml 100 ml # Voids 2 3 Laboratory Tests Test 09/14/18 03:20 White Blood Count 5.7 K/UL (4.8-10.8) Red Blood Count 3.03 M/UL (4.70-6.10) L Hemoglobin 8.9 G/DL (14.2-18.0) L Hematocrit 26.7 % (42.0-52.0) L Mean Corpuscular Volume 88 FL (80-99) Mean Corpuscular Hemoglobin 29.4 PG (27.0-31.0) Mean Corpuscular Hemoglobin Concent 33.4 G/DL (32.0-36.0) Red Cell Distribution Width 13.4 % (11.6-14.8) Platelet Count 178 K/UL (150-450) Mean Platelet Volume 5.7 FL (6.5-10.1) L Neutrophils (%) (Auto) 61.2 % (45.0-75.0) Lymphocytes (%) (Auto) 25.8 % (20.0-45.0) Monocytes (%) (Auto) 9.8 % (1.0-10.0) Eosinophils (%) (Auto) 2.8 % (0.0-3.0) Basophils (%) (Auto) 0.4 % (0.0-2.0) Height (Feet): 5 Height (Inches): 10.00 Weight (Pounds): 131 Medications Current Medications Medications (Trade) Dose Ordered Sig/Radha Route PRN Reason Start Time Stop Time Status Last Admin Dose Admin Acetaminophen (Tylenol) 650 mg Q4H PRN ORAL FEVER 09/12/18 21:15 10/12/18 21:14 Albuterol/ Ipratropium (Albuterol/ Ipratropium) 3 ml Q4H PRN HHN Shortness of Breath 09/12/18 21:15 09/17/18 21:14 Dextrose (Dextrose 50%) 25 ml Q30M PRN IV Hypoglycemia 09/12/18 21:15 10/12/18 21:14 Dextrose (Dextrose 50%) 50 ml Q30M PRN IV Hypoglycemia 09/12/18 21:30 10/12/18 21:29 Gabapentin (Neurontin) 400 mg THREE TIMES A DAY GT 09/13/18 09:00 10/13/18 08:59 09/14/18 18:20 Heparin Sodium (Porcine) (Heparin 5000 units/ml) 5,000 units EVERY 12 HOURS SUBQ 09/13/18 09:00 10/13/18 08:59 09/14/18 20:33 Iron Sucrose 100 mg/Sodium Chloride 60 ml @ 240 mls/hr BEDTIME IV 09/13/18 21:00 09/17/18 21:14 09/14/18 20:32 Levothyroxine Sodium (Synthroid) 75 mcg DAILY GT 09/13/18 09:00 10/13/18 08:59 09/14/18 08:32 Lorazepam (Ativan 2mg/ml 1ml) 2 mg Q2H PRN IV For Anxiety 09/12/18 21:15 09/19/18 21:14 Morphine Sulfate (Morphine Sulfate) 4 mg Q4H PRN IVP Severe Pain (Pain Scale 7-10) 09/12/18 21:15 09/19/18 21:14 Ondansetron HCl (Zofran) 4 mg Q6H PRN IVP Nausea & Vomiting 09/12/18 21:15 10/12/18 21:14 Pantoprazole (Protonix) 40 mg DAILY IV 09/13/18 09:00 10/13/18 08:59 09/14/18 08:32 Polyethylene Glycol (Miralax) 17 gm DAILYPRN PRN ORAL Constipation 09/12/18 21:15 10/12/18 21:14 Assessment/Plan Assessment/Plan Hematology/Oncology Consultation Requesting MD: Shy Peck Date of Service: 09/14/18 Reason for consultation: Anemia HISTORY OF PRESENT ILLNESS: The patient is a resident of an [facility] subacute unit where he has been in relatively stable condition for the last week. More than a week ago, he was admitted to [facility] for sepsis. He was found to have a fracture of his left hip. It was nondisplaced and discharged back to the facility several days after his admission. His gastrostomy tube became nonfunctional, and he was transferred to [facility]. Hematology/Oncology was consulted for Anemia, hgb 8.9. PAST MEDICAL HISTORY: He developed acute respiratory failure associated with CVA. He had to be intubated and placed on mechanical ventilation. He was unable to be weaned and underwent tracheostomy and gastrostomy and referred to the subacute unit. ALLERGIES: There are no allergies. MEDICATIONS: The patient is on gabapentin 400 mg t.i.d. and levothyroxine 75 mcg daily. He was on heparin 5000 units subcutaneously q.12 h., pantoprazole 40 mg daily, albuterol sulfate and ipratropium bromide inhalation therapy every four hours, and lorazepam for anxiety. FAMILY HISTORY: Not known. SOCIAL HISTORY: He is single. HABITS: The patient has a long history of smoking, but denies drinking or use of illicit drugs. Physical Exam General Appearance: cachetic, Vent++ Lines, tubes and drains: peripheral HEENT: normocephalic, atraumatic, trach++ Neck: non-tender, normal alignment Respiratory/Chest: chest wall non-tender, normal breath sounds Cardiovascular/Chest: normal peripheral pulses, normal rate Abdomen: normal bowel sounds, PEG++ Genitourinary/Rectal: normal genital exam Extremities: non-tender LABORATORY DATA: Wbc 5, Hemoglobin 8.9 , platelets 178 Assessment/Recs: # Anemia of chronic disease due to underlying chronic medical issues, multifactorial --> Anemia workup has been reviewed, ferritin 1416 -->Transfused 2 units PRBC 09/13/18 --> No evidence of hemolysis is noted, peripheral smear has been reviewed. --> Hgb goal >7. Transfuse prn. --> Epogen or iron at this time is not particularly indicated --> Medications have been reviewed # Dysphagia s/p PEG # Chronic resp failure s/p trach # PEG (percutaneous endoscopic gastrostomy) adjustment/replacement/removal # Protein-calorie malnutrition, severe # Feeding by G-tube The timing of this note does not necessarily reflect the time of the patient was seen. Greatly appreciate consultation! J Carlos Kraft MD Sep 14, 2018 23:43
[2018-09-15] VITALS: BP 110/65
--- NOTE | 2018-09-15 02:00 | NUR ---
NURSE NOTES: Morning care provided at this time. Condom cath noted to be leaking and reapplied at this time. No signs of distress noted. Will continue to monitor
[2018-09-15 04:00] VITALS: BP 128/82
--- NOTE | 2018-09-15 05:20 | NUR ---
RESPIRATORY NOTE: PT. REMAINED STABLE ON CMV WITH CURRENT SETTINGS. SXN'D PRN WITH NO ADVERSE REACTION. VENT CIRCUIT SECURE AND OUT OF THE WAY. NO RESPIRATORY DISTRESS NOTED AT THIS TIME.
--- NOTE | 2018-09-15 05:43 | NUR ---
NURSE NOTES: Message left for FATOU Pritchett in regards to VRE
[2018-09-15 05:54] LABS: BASOPHILS % (AUTO) 0.9 % (0.0-2.0); EOSINOPHILS % (AUTO) 3.4 % (0.0-3.0); HEMATOCRIT 27.6 % (42.0-52.0); HEMOGLOBIN 9.1 G/DL (14.2-18.0); LYMPHOCYTES % (AUTO) 25.3 % (20.0-45.0); MEAN CORPUSCULAR VOLUME 90 FL (80-99); MONOCYTES % (AUTO) 8.9 % (1.0-10.0); NEUTROPHILS % (AUTO) 61.6 % (45.0-75.0); PLATELET COUNT 230 K/UL (150-450); RED BLOOD COUNT 3.07 M/UL (4.70-6.10); RED CELL DISTRIBUTION WIDTH 13.5 % (11.6-14.8)
[2018-09-15 07:01] LABS: ALANINE AMINOTRANSFERASE 86 U/L (12-78); ALBUMIN 1.8 G/DL (3.4-5.0); ALBUMIN/GLOBULIN RATIO 0.4 (1.0-2.7); ALKALINE PHOSPHATASE 316 U/L (46-116); ANION GAP 6 mmol/L (5-15); ASPARTATE AMINO TRANSFERASE 130 U/L (15-37); BILIRUBIN,TOTAL 0.2 MG/DL (0.2-1.0); BLOOD UREA NITROGEN 12 mg/dL (7-18); CALCIUM 8.8 MG/DL (8.5-10.1); CARBON DIOXIDE 30 MMOL/L (21-32); CHLORIDE 104 MMOL/L (98-107); CREATININE 0.8 MG/DL (0.55-1.30); PHOSPHORUS 3.7 MG/DL (2.5-4.9); POTASSIUM 3.7 MMOL/L (3.5-5.1); SODIUM 140 MMOL/L (136-145)
--- NOTE | 2018-09-15 07:01 | NUR ---
HAND-OFF: Report given to Dave RN using SBAR.
--- NOTE | 2018-09-15 07:02 | NUR ---
NURSE NOTES: Received patient from JOSE DANIEL Grissom. Patient VS stable at this time with no sign of acute distress. Patient sleeping at this time. Patient reported to be nonverbal but follows commands and responds to yes or no questions by shaking head. Patient on trach to ventilator setting of AC 12, TV 500, FiO2 40%, and peep 5. Patient tolerating setting with SpO2 of 98%. Patient has a G tube that is patent and asymptomatic at this time and running Jevity 1.2 at 30mL/hr. Patient tolerating feeding with no residual. Patient has a condom catheter that is patent, asymptomatic and draining at this time. Patient has a left hand 22G PIV that is saline locked at this time and patent and asymptomatic. Patient has a right wrist 20G PIV that is patent, asymptomatic, and saline locked at this time. Patient bed in low position with bed alarm on and call light in reach at this time. Patient's labs are not resulted yet. Will follow up. 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 Dr Nguyen has been notified. Awaiting new orders at this time. Patient has perineal and sacral redness at this time. Triad cream has been applied. Patient has Optifoam on sacral for protection at this time.
--- NOTE | 2018-09-15 07:16 | Progress Note ---
DATE: 09/14/2018 SUBJECTIVE: The patient is awake, alert, afebrile, and hemodynamically stable. PHYSICAL EXAMINATION: VITAL SIGNS: Blood pressure 112/72, his pulse is 68, respirations 19, and temperature 98. HEENT: Eyes were normal. ENT, mucous membranes were moist and intact. NECK: Supple with no JVD without lymph nodes. Tracheostomy site is clean. LUNGS: Clear without rhonchi, rales, or wheezing. Secretions are small, thin, and del real. HEART: Normal sounds with regular beats. There is no S3, S4, or pericardial rub. ABDOMEN: Soft and nontender with normal bowel sounds. Gastrostomy site is clean. EXTREMITIES: Warm without cyanosis, clubbing, or edema. LABORATORY AND DIAGNOSTIC DATA: Hemoglobin is 8.9, hematocrit 26.7 with MCV of 88, WBC of 5.7, and platelets 178,000. His BUN and creatinine are 15 and 0.8 respectively. His sodium is 133, potassium 3.7, chloride 100, and CO2 is 26. His ferritin is . His LDH is 131. His albumin is 1.9 and vitamin B12 is and folate is 13.6. Urine culture, gram-negative rods. . Chest x-ray showed no active disease. IMPRESSION: The patient is stable. He can be discharged in the a.m. to an extended care facility. Shy Peck M.D. DR: BETTY JOB#: [id number] CC:
--- NOTE | 2018-09-15 07:35 | NUR ---
HAND-OFF: Report given to JOSE DANIEL Ly. Patient VS stable at this time with no sign of acute distress. patient has a Magnesium of 1.8 this morning. Endorsed to follow up.
--- NOTE | 2018-09-15 07:36 | NUR ---
NURSE NOTES: Report received from Jordana Brand RN.Pt asleep with trach tube shiley #8 to vent settings AC 12,TV 500 Fio2 35% ,Peep 5.,no resp distress noted, SR on the monitor,GTF Jevity 1.2 at 30 ml/hr ,no residual noted,condom cath in placed,IV sites x2 RW and LH intact,skin warm and dry,SR up x2,HOB elevated,bed lock in lowest position ,will continue with plans of care.
--- NOTE | 2018-09-15 07:48 | Pulmonology Progress Note ---
Assessment/Plan Assessment/Plan ASSESSMENT Ventilator dependent respiratory failure, tracheostomy status Hypertension Nosocomial pneumonia Dysphagia, G tube feeding Severe anemia Hypothyroidism Severe protein calorie malnutrition History of CVA G-tube dislodgment, status post replacement in the ED Hypo Mg Elevated LFT PLAN OF CARE [facility] status Vent support, trach care Pulmonary toilet Baseline ABG stable on current settings, keep as is and titrate prn Chest x-ray with prominent interstitial markings. Sputum culture + GNR, blood cx prel negative No fevers,no leukocytosis, ID specialist recommended to keep patient off abx Venous duplex bilateral lower extremity no evidence of acute DVT Strict aspiration precaution, G-tube feeding, monitor tolerance H&H stable after transfusion of 2 units of PRBC Stool for OB negative CEA WNL Monitor H&H with goal to keep hemoglobin above 7 Anemia workup revealed anemia of chronic disease elevated ferritin 1416; stop Venofer replace Mg, check Mg in am elevated LFT, check hepatitis panel, CMP, abd US DVT, GI prophylaxis supportive care bowel regimen machine operator packaging recs implemented in POC DNR DNI status case discussed and evaluated by supervising physician Subjective Allergies: Coded Allergies: VANCOMYCIN (Verified Allergy, Unknown, 09/12/18) Subjective no signs of resp distress on current settings Mg-1.5 today elevated LFT noted Objective Last 24 Hour Vital Signs Date Time Temp Pulse Resp B/P (MAP) Pulse Ox O2 Delivery O2 Flow Rate FiO2 09/15/18 07:16 69 15 40 09/15/18 05:20 67 16 40 09/15/18 04:00 98.3 66 15 128/82 (97) 100 09/15/18 04:00 Mechanical Ventilator 09/15/18 04:00 35 09/15/18 04:00 66 09/15/18 03:13 69 15 40 09/15/18 01:15 70 16 40 09/15/18 00:00 98.2 78 15 110/65 (80) 100 09/15/18 00:00 Mechanical Ventilator 09/15/18 00:00 69 09/14/18 22:39 97 14 40 09/14/18 21:15 68 16 40 09/14/18 20:00 68 09/14/18 20:00 Mechanical Ventilator 09/14/18 20:00 35 09/14/18 20:00 98.0 69 19 112/72 (85) 100 09/14/18 19:10 68 13 40 09/14/18 17:10 67 18 40 09/14/18 16:00 35 09/14/18 16:00 Mechanical Ventilator 09/14/18 16:00 66 09/14/18 16:00 97.1 66 19 117/62 (80) 100 09/14/18 15:18 66 17 40 09/14/18 13:29 63 16 40 09/14/18 12:00 35 09/14/18 12:00 98.8 77 20 135/70 (91) 99 09/14/18 12:00 68 09/14/18 12:00 Mechanical Ventilator 09/14/18 11:14 65 21 40 09/14/18 09:27 65 16 40 09/14/18 08:00 98.2 67 20 129/80 (96) 100 09/14/18 08:00 65 09/14/18 08:00 Mechanical Ventilator 09/14/18 08:00 40 Intake and Output 09/14/18 09/15/18 19:00 07:00 Intake Total 577.5 ml 377.5 ml Balance 577.5 ml 377.5 ml Intake Free Water 100 ml IV Total 237.5 ml 47.5 ml Tube Feeding 240 ml 330 ml # Voids 3 3 General Appearance: cachetic, other - bedridden , awake, vent dependent male in NAD vent AC 500-12-40%, PEEP 5 HEENT: normocephalic, atraumatic, status post trach - Shiley #6, secretions small, white, thick Respiratory/Chest: lungs clear, no respiratory distress Cardiovascular: normal rate, regular rhythm - SR on tele Abdomen: normal bowel sounds, soft, non tender, other - G tube with TF Extremities: no edema Skin: no rash Neurologic/Psychiatric: abnormal gait - bedridden , other - awake, somewhat responsive Musculoskeletal: atrophy - BLE Microbiology Date/Time Source Procedure Growth Status 09/13/18 23:50 Blood Peripheral Blood Culture - Preliminary NO GROWTH AFTER 24 HOURS Resulted 09/13/18 23:50 Blood Peripheral Blood Culture - Preliminary NO GROWTH AFTER 24 HOURS Resulted 09/12/18 17:35 Blood Blood Culture - Preliminary NO GROWTH AFTER 48 HOURS Resulted 09/13/18 03:00 Sputum Gram Stain - Final Resulted 09/13/18 03:00 Sputum Culture - Preliminary Gram Negative Nathan Resulted 09/12/18 18:50 Nasal Nares MRSA Culture - Final NO METHICILLIN RESISTANT STAPH AUREUS... Complete 09/12/18 18:50 Rectum VRE Culture - Final Enterococcus Faecium - Vre Complete Laboratory Tests 09/15/18 05:00: White Blood Count 6.0, Red Blood Count 3.07L, Hemoglobin 9.1L, Hematocrit 27.6L , Mean Corpuscular Volume 90, Mean Corpuscular Hemoglobin 29.7, Mean Corpuscular Hemoglobin Concent 33.0, Red Cell Distribution Width 13.5, Platelet Count 230, Mean Platelet Volume 5.4L, Neutrophils (%) (Auto) 61.6, Lymphocytes ( %) (Auto) 25.3, Monocytes (%) (Auto) 8.9, Eosinophils (%) (Auto) 3.4H, Basophils (%) (Auto) 0.9, Sodium Level 140, Potassium Level 3.7, Chloride Level 104, Carbon Dioxide Level 30, Anion Gap 6, Blood Urea Nitrogen 12, Creatinine 0.8, Estimat Glomerular Filtration Rate > 60, Glucose Level 83, Calcium Level 8.8, Phosphorus Level 3.7, Magnesium Level 1.5L, Total Bilirubin 0.2, Aspartate Amino Transf (AST/SGOT) 130H, Alanine Aminotransferase (ALT/SGPT) 86H, Alkaline Phosphatase 316H, Total Protein 6.9, Albumin 1.8L, Globulin 5.1, Albumin/ Globulin Ratio 0.4L Current Medications Medications (Trade) Dose Ordered Sig/Radha Route PRN Reason Start Time Stop Time Status Last Admin Dose Admin Acetaminophen (Tylenol) 650 mg Q4H PRN ORAL FEVER 09/12/18 21:15 10/12/18 21:14 Albuterol/ Ipratropium (Albuterol/ Ipratropium) 3 ml Q4H PRN HHN Shortness of Breath 09/12/18 21:15 09/17/18 21:14 Dextrose (Dextrose 50%) 25 ml Q30M PRN IV Hypoglycemia 09/12/18 21:15 10/12/18 21:14 Dextrose (Dextrose 50%) 50 ml Q30M PRN IV Hypoglycemia 09/12/18 21:30 10/12/18 21:29 Gabapentin (Neurontin) 400 mg THREE TIMES A DAY GT 09/13/18 09:00 10/13/18 08:59 09/14/18 18:20 Heparin Sodium (Porcine) (Heparin 5000 units/ml) 5,000 units EVERY 12 HOURS SUBQ 09/13/18 09:00 10/13/18 08:59 09/14/18 20:33 Iron Sucrose 100 mg/Sodium Chloride 60 ml @ 240 mls/hr BEDTIME IV 09/13/18 21:00 09/17/18 21:14 09/14/18 20:32 Levothyroxine Sodium (Synthroid) 75 mcg DAILY GT 09/13/18 09:00 10/13/18 08:59 09/14/18 08:32 Lorazepam (Ativan 2mg/ml 1ml) 2 mg Q2H PRN IV For Anxiety 09/12/18 21:15 09/19/18 21:14 Morphine Sulfate (Morphine Sulfate) 4 mg Q4H PRN IVP Severe Pain (Pain Scale 7-10) 09/12/18 21:15 09/19/18 21:14 Ondansetron HCl (Zofran) 4 mg Q6H PRN IVP Nausea & Vomiting 09/12/18 21:15 10/12/18 21:14 Pantoprazole (Protonix) 40 mg DAILY IV 09/13/18 09:00 10/13/18 08:59 09/14/18 08:32 Polyethylene Glycol (Miralax) 17 gm DAILYPRN PRN ORAL Constipation 09/12/18 21:15 10/12/18 21:14 Rajni Wiggins NP Sep 15, 2018 07:48
[2018-09-15 08:00] VITALS: BP 116/74
--- NOTE | 2018-09-15 08:34 | Infectious Diseases Prog Note ---
Assessment/Plan Assessment/Plan Abx: None Assessment: Acute anemia- ?bleeding, ?source Afebrile No leukocytosis- no evidence of infectious process at present -u/a neg -CXR: Prominent interstitial markings are seen in the right lung. No focal airspace consolidation. -sp cx GNR; likely colonizer GT malfunction CVA dysphagia s/p PEG HLD GERD chronic resp failure s/p trach hypothyroidism recent hip fracture SNF resident Plan: -Continue to monitor off abx as patient clinically stable -f/u cx -Monitor CBC/CMP, temperatures -GI f/u -aspiration precautions -CXR am Will continue to follow along with you. Subjective Allergies: Coded Allergies: VANCOMYCIN (Verified Allergy, Unknown, 09/12/18) Subjective Afebrile Satting well on vent 40% O2 No Leukocytosis Objective Vital Signs Last 24 Hour Vital Signs Date Time Temp Pulse Resp B/P (MAP) Pulse Ox O2 Delivery O2 Flow Rate FiO2 09/15/18 07:16 69 15 40 09/15/18 05:20 67 16 40 09/15/18 04:00 98.3 66 15 128/82 (97) 100 09/15/18 04:00 Mechanical Ventilator 09/15/18 04:00 35 09/15/18 04:00 66 09/15/18 03:13 69 15 40 09/15/18 01:15 70 16 40 09/15/18 00:00 98.2 78 15 110/65 (80) 100 09/15/18 00:00 Mechanical Ventilator 09/15/18 00:00 69 09/14/18 22:39 97 14 40 09/14/18 21:15 68 16 40 09/14/18 20:00 68 09/14/18 20:00 Mechanical Ventilator 09/14/18 20:00 35 09/14/18 20:00 98.0 69 19 112/72 (85) 100 09/14/18 19:10 68 13 40 09/14/18 17:10 67 18 40 09/14/18 16:00 35 09/14/18 16:00 Mechanical Ventilator 09/14/18 16:00 66 09/14/18 16:00 97.1 66 19 117/62 (80) 100 09/14/18 15:18 66 17 40 09/14/18 13:29 63 16 40 3/8/19 12:00 35 09/14/18 12:00 98.8 77 20 135/70 (91) 99 09/14/18 12:00 68 09/14/18 12:00 Mechanical Ventilator 09/14/18 11:14 65 21 40 09/14/18 09:27 65 16 40 Height (Feet): 5 Height (Inches): 10.00 Weight (Pounds): 131 Objective GEN: NAD HEENT: CTAB, PERRL LUNGS: CTAB, No W HEART: RRR, S1,S2 ABDOMEN: Soft, NT Microbiology Date/Time Source Procedure Growth Status 09/13/18 23:50 Blood Peripheral Blood Culture - Preliminary NO GROWTH AFTER 24 HOURS Resulted 09/13/18 23:50 Blood Peripheral Blood Culture - Preliminary NO GROWTH AFTER 24 HOURS Resulted 09/12/18 17:35 Blood Blood Culture - Preliminary NO GROWTH AFTER 48 HOURS Resulted 09/13/18 03:00 Sputum Gram Stain - Final Resulted 09/13/18 03:00 Sputum Culture - Preliminary Gram Negative Nathan Resulted 09/12/18 18:50 Nasal Nares MRSA Culture - Final NO METHICILLIN RESISTANT STAPH AUREUS... Complete 09/12/18 18:50 Rectum VRE Culture - Final Enterococcus Faecium - Vre Complete Laboratory Tests Test 09/15/18 05:00 White Blood Count 6.0 K/UL (4.8-10.8) Red Blood Count 3.07 M/UL (4.70-6.10) L Hemoglobin 9.1 G/DL (14.2-18.0) L Hematocrit 27.6 % (42.0-52.0) L Mean Corpuscular Volume 90 FL (80-99) Mean Corpuscular Hemoglobin 29.7 PG (27.0-31.0) Mean Corpuscular Hemoglobin Concent 33.0 G/DL (32.0-36.0) Red Cell Distribution Width 13.5 % (11.6-14.8) Platelet Count 230 K/UL (150-450) Mean Platelet Volume 5.4 FL (6.5-10.1) L Neutrophils (%) (Auto) 61.6 % (45.0-75.0) Lymphocytes (%) (Auto) 25.3 % (20.0-45.0) Monocytes (%) (Auto) 8.9 % (1.0-10.0) Eosinophils (%) (Auto) 3.4 % (0.0-3.0) H Basophils (%) (Auto) 0.9 % (0.0-2.0) Sodium Level 140 MMOL/L (136-145) Potassium Level 3.7 MMOL/L (3.5-5.1) Chloride Level 104 MMOL/L (98-107) Carbon Dioxide Level 30 MMOL/L (21-32) Anion Gap 6 mmol/L (5-15) Blood Urea Nitrogen 12 mg/dL (7-18) Creatinine 0.8 MG/DL (0.55-1.30) Estimat Glomerular Filtration Rate > 60 mL/min (>60) Glucose Level 83 MG/DL (74-106) Calcium Level 8.8 MG/DL (8.5-10.1) Phosphorus Level 3.7 MG/DL (2.5-4.9) Magnesium Level 1.5 MG/DL (1.8-2.4) L Total Bilirubin 0.2 MG/DL (0.2-1.0) Aspartate Amino Transf (AST/SGOT) 130 U/L (15-37) H Alanine Aminotransferase (ALT/SGPT) 86 U/L (12-78) H Alkaline Phosphatase 316 U/L (46-116) H Total Protein 6.9 G/DL (6.4-8.2) Albumin 1.8 G/DL (3.4-5.0) L Globulin 5.1 g/dL Albumin/Globulin Ratio 0.4 (1.0-2.7) L Current Medications Medications (Trade) Dose Ordered Sig/Radha Route PRN Reason Start Time Stop Time Status Last Admin Dose Admin Acetaminophen (Tylenol) 650 mg Q4H PRN ORAL FEVER 09/12/18 21:15 10/12/18 21:14 Albuterol/ Ipratropium (Albuterol/ Ipratropium) 3 ml Q4H PRN HHN Shortness of Breath 09/12/18 21:15 09/17/18 21:14 Dextrose (Dextrose 50%) 25 ml Q30M PRN IV Hypoglycemia 09/12/18 21:15 10/12/18 21:14 Dextrose (Dextrose 50%) 50 ml Q30M PRN IV Hypoglycemia 09/12/18 21:30 10/12/18 21:29 Gabapentin (Neurontin) 400 mg THREE TIMES A DAY GT 09/13/18 09:00 10/13/18 08:59 09/14/18 18:20 Heparin Sodium (Porcine) (Heparin 5000 units/ml) 5,000 units EVERY 12 HOURS SUBQ 09/13/18 09:00 10/13/18 08:59 09/14/18 20:33 Iron Sucrose 100 mg/Sodium Chloride 60 ml @ 240 mls/hr BEDTIME IV 09/13/18 21:00 09/17/18 21:14 09/14/18 20:32 Levothyroxine Sodium (Synthroid) 75 mcg DAILY GT 09/13/18 09:00 10/13/18 08:59 09/14/18 08:32 Lorazepam (Ativan 2mg/ml 1ml) 2 mg Q2H PRN IV For Anxiety 09/12/18 21:15 09/19/18 21:14 Morphine Sulfate (Morphine Sulfate) 4 mg Q4H PRN IVP Severe Pain (Pain Scale 7-10) 09/12/18 21:15 09/19/18 21:14 Ondansetron HCl (Zofran) 4 mg Q6H PRN IVP Nausea & Vomiting 09/12/18 21:15 10/12/18 21:14 Pantoprazole (Protonix) 40 mg DAILY IV 09/13/18 09:00 10/13/18 08:59 09/14/18 08:32 Polyethylene Glycol (Miralax) 17 gm DAILYPRN PRN ORAL Constipation 09/12/18 21:15 10/12/18 21:14 Addy Calvin MD Sep 15, 2018 08:34
--- NOTE | 2018-09-15 09:00 | NUR ---
NURSE NOTES: pt turned and repositioned ,oral/tracheal secretions suctioned PRN.
[2018-09-15] MEDS: Pantoprazole Inj IV SCH (09:07)
[2018-09-15] MEDS: Heparin 5000 units/ml inj SUBQ SCH ×2 (09:09→20:32)
--- NOTE | 2018-09-15 10:45 | Diagnostic Imaging Report ---
EXAM: XR Chest, 1 View CLINICAL HISTORY: COUGH TECHNIQUE: Frontal view of the chest. COMPARISON: Chest x-ray, 09/12/18 1402 FINDINGS: Lungs: Mild interstitial prominence are similar to slightly improved. No focal infiltrate or consolidation. Pleural space: Unremarkable. No pneumothorax. Heart: Unremarkable. No cardiomegaly. Mediastinum: Unremarkable. Bones/joints: Unremarkable. Tubes, lines and devices: Stable tracheostomy tube. IMPRESSION: Mild interstitial prominence are similar to slightly improved.
[2018-09-15 12:00] VITALS: BP 140/81
[2018-09-15 16:00] VITALS: BP 135/74
--- NOTE | 2018-09-15 17:03 | NUR ---
CASE MANAGEMENT:DCPNOTE PATIENT REFERRED BACK TO [facility] [phone] AWAITING RETURN CALLED. ADMISSIONS UNAVAILABLE Addendum: 09/15/18 at 1730 by ESTRELLA SULLIVAN CM PATIENT ACCEPTED BACK TO [facility] [phone] [facility] [phone] LEFT MESSAGE TRANSPORTATION VIA [facility] [id number] ETA 19:00
--- NOTE | 2018-09-15 17:31 | NUR ---
RESPIRATORY NOTE: Pt. remained stable on current AC vent settings. SXN prn, no signs of SOB or respiratory distress at this time.
--- NOTE | 2018-09-15 18:25 | NUR ---
NURSE NOTES: Report called out to [facility],spoke with Ada SKY,updated re pt's status and condition,V/S,and medications,and isolation.Informed re ETA at 1900 by [facility].
--- NOTE | 2018-09-15 18:46 | NUR ---
NURSE NOTES: Pt stable.no resp distress presented,bed bath given ,photos taken,pt for discharge today.
--- NOTE | 2018-09-15 18:47 | NUR ---
NURSE NOTES: called family member,pt's daughter ,Angela Gillis,informed re pt's discharge back to [facility],verbalized understanding.
--- NOTE | 2018-09-15 19:20 | NUR ---
NURSE NOTES: Received report from Bobbi SKY. pt. in bed awake, no signs or symptoms of acute cardiac or respiratory distress noted, pt. in bed awake, awake to name, non-verbal, cardiac monitoring on, no signs or symptoms of acute cardiac or respiratory distress noted, pt. appears to be tolerating current vent settings well- AC 12, TV 500, Fio2 @35%- no distress noted, G tube is clamped as pt. is being discharged- awaiting for ambulance arrival, Condom cath intact and draining to gravity, RT. wrist 20G and Lt. hand 22G both ivs intact and patent, safety measures continued, will continue with plan of care- per endorsement pt. will be discharged to [facility] [place]- report given to Ada SKY.
--- NOTE | 2018-09-15 19:22 | NUR ---
HAND-OFF: Report given to Bryce Fletcher RN..
[2018-09-15] MEDS ORDERED: NS 275ml ONE (19:51)
[2018-09-15] MEDS ORDERED: Tubing IV Secondary IV ONE (19:51)
[2018-09-15 20:00] VITALS: BP 112/62
--- NOTE | 2018-09-15 22:14 | NUR ---
NURSE NOTES: Report given to [facility] personal- pt. appears to be stable and no distress noted. Pt. is being discharged to [facility] [place].
--- NOTE | 2018-09-18 07:53 | Discharge Summary ---
Discharge Summary Discharge Summary _ DATE OF ADMISSION: 09/12/2018 DATE OF DISCHARGE: 09/15/2018 DISCHARGED BY: Dr. Peck REASON FOR ADMISSION: 68 years old male with past medical history of chronic respiratory failure, ventilator dependent, dysphagia, G-tube, history of CVA, GERD, hypothyroidism, hyperlipidemia, DNR/DNI status, presented to emergency room after G-tube was accidentally dislodged. Upon evaluation laboratory workup revealed no leukocytosis, hemoglobin 6.3, hematocrit 19.3. Platelet count was stable Sodium 132, BUN 19, creatinine 1.0. Lactic acid 1.0. Troponin negative, EKG revealed sinus rhythm, no acute ischemic changes. Albumin 2.0. Urinalysis revealed no evidence of UTI. Chest x-ray demonstrated prominent bilateral interstitial markings. G-tube was replaced by emergency room physician. Abdominal x-ray revealed satisfactory position of gastrostomy tube. Patient admitted for severe anemia for blood transfusion to direct observational unit. CONSULTANTS: pulmonary Dr. Leonard ID specialist Dr. Robins concrete hopper operator/oncologist Dr. Kraft [facility] COURSE: Patient admitted to [facility]. Ventilator support and tracheostomy care provided. Pulmonary toilet provided. Baseline ABG was stable on current settings. Settings were kept as is and titrated as needed. Chest x-ray revealed prominent interstitial markings. Blood pressure initially was low, probably due to severe anemia. Patient undergone transfusion of 2 units of packed red blood cells. Hemodynamic status was closely monitored. Blood pressure stabilized. Blood culture were negative. Sputum culture revealed Providencia stuartii, Enterobacter and Achromobacter. Follow-up chest x-ray revealed no evidence of pneumonia. Urinalysis revealed no evidence of UTI. Per ID recommendation patient was kept and monitored off antibiotics. No fevers, no leukocytosis. Strict aspiration precaution were maintained. G-tube feeding continued. Patient was able to tolerate tube feeding . Nutritional recommendation implemented in plan of care. Venous duplex bilateral lower extremity revealed no evidence of acute DVT. DVT and GI prophylaxis provided. Stool for occult blood was negative. CEA was within normal limits. Medicare Nurse followed. Hemoglobin and hematocrit were closely monitored with goal to keep hemoglobin above 7. Anemia workup was consistent with anemia of chronic disease due to underlying chronic medical issue, multifactorial. Ferritin elevated 1416. No evidence of hemolysis. Peripheral smear was reviewed by concrete hopper operator. Prior to discharge hemoglobin 9.1, hematocrit 27.6. Renal parameters and electrolytes were closely monitor. Electrolytes/magnesium replaced as needed. Nephrotoxins were avoided. Levothyroxine was continued. Noted elevation in liver enzymes. Recommended hepatitis panel and abdominal ultrasound as outpatient. Supportive care provided. Bowel regimen instituted. Patient with DNR/DNI status. Patient clinically stabilized and was ready for transfer back to [facility] facility for continuation of care. FINAL DIAGNOSES: Ventilator dependent respiratory failure, tracheostomy status Severe anemia, requiring blood transfusion Anemia of chronic disease Hypotension, initially - resolved G-tube dislodgment status post replacement in ED Dysphagia, G-tube feeding Severe protein calorie malnutrition Hypomagnesemia Elevated LFT History of CVA History of hypertension DISCHARGE MEDICATIONS: See Medication Reconciliation list. DISCHARGE INSTRUCTIONS: Patient was discharged to the [facility] facility. Follow up with medical doctor at the facility. Rajni Wiggins NP Sep 18, 2018 07:53
== END 2018-09-15 22:28 | DRG 393 ==
LOC: EDBD 15:14 → EMR 15:46 → 2W 18:02 → EDBEDREQ 18:18 → 2W 21:41
PROC: 30233N1 Transfusion of Nonautologous Red Blood Cells into Peripheral Vein, Percutaneous Approach (ICD-10-PCS; principal; 2018-09-12)
PROC: 0D20XUZ Change Feeding Device in Upper Intestinal Tract, External Approach (ICD-10-PCS; principal; 2018-09-12)
PROC: 5A1945Z Respiratory Ventilation, 24-96 Consecutive Hours (ICD-10-PCS; principal; 2018-09-12)
DX: K94.23 Gastrostomy malfunction (principal); E43 Unspecified severe protein-calorie malnutrition; Z68.1 Body mass index [BMI] 19.9 or less, adult; Z99.11 Dependence on respirator [ventilator] status; J96.10 Chronic respiratory failure, unspecified whether with hypoxia or hypercapnia; I95.9 Hypotension, unspecified; Y83.3 Surgical operation with formation of external stoma as the cause of abnormal reaction of the patient, or of later complication, without mention of misadventure at the time of the procedure; D64.9 Anemia, unspecified; Z43.0 Encounter for attention to tracheostomy; D63.8 Anemia in other chronic diseases classified elsewhere; R13.10 Dysphagia, unspecified; E83.42 Hypomagnesemia; R79.89 Other specified abnormal findings of blood chemistry; Z66 Do not resuscitate; E03.9 Hypothyroidism, unspecified; G89.4 Chronic pain syndrome; I69.398 Other sequelae of cerebral infarction; E78.5 Hyperlipidemia, unspecified; Z88.1 Allergy status to other antibiotic agents; Z87.891 Personal history of nicotine dependence; S72.002D Fracture of unspecified part of neck of left femur, subsequent encounter for closed fracture with routine healing; X58.XXXD Exposure to other specified factors, subsequent encounter
CPT/HCPCS: 36415; 36600; 71045; 74018; 80053; 80069; 81003; 82270; 82378; 82550; 82553; 82607; 82728; 82746; 82803; 83540; 83550; 83605; 83615; 83690; 83735; 84100; 84484; 85007; 85025; 85044; 85060; 85610; 85651; 85730; 86850; 86900; 86901; 86920; 87040; 87070; 87081; 87181; 87205; 93970; 94002; 94003; 94664; 96365; 99285